=== PATIENT | male | born 2005 | race Caucasian/White ===

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

== ENCOUNTER 2024-07-14 09:15 | Emergency (ER) | payer OTHER, MEDICAID, SELFPAY ==
[2024-07-14] VITALS (21 sets, daily range): BP systolic 106–130; BP diastolic 58–73; PULSE 53–94; RESP 10–26; TEMP 36.6–37; O2SAT 97–100
--- OUTSIDE RECORDS SUMMARY | 2024-07-14 09:27 | XMS_ITS | Referral Summary ---
Author Organization [facility] Address [address] [place] [address] Care Team Providers Care Traffic Control Operator Name Role Phone System, Provider Not In Unavailable Unavaila ble Allergies No known active allergies Medications No known medications Immunizations Name Administration Dates Next Due Tdap Vaccine (7y+) 0.5 mL IM (Adacel, Boostrix)TDAP VACCINE AGE 7+ 06/21/2022 Social History Tobacco Use Types Packs/Day Years Used Date Smoking Tobacco: Never Smokeless Tobacco: Never Alcohol Use Standard Drinks/Week Comments Yes 0 (1 standard drink = 0.6 oz pur e alcohol) socially Substance Use Types Use/Week Comments Not Currently Sex and Gender Information Value Date Recorded Sex Assigned at Not on file Legal Sex Male 5:03 PM EDT Gender Identity Not on file Sexual Orientation Not on file Last Filed Vital Signs Vital Sign Reading Time Taken Comments Blood Pressure 126/79 06/21/2022 5:06 PM EDT Pulse 64 06/21/2022 5:06 PM EDT Temperature 36.4 ??C (97.5 ??F) 06/21/2022 5:06 PM ED T Respiratory Rate 16 06/21/2022 5:06 PM EDT Oxygen Saturation 100% 06/21/2022 5:06 PM EDT Inhaled Oxygen Concentration 100% 06/21/2022 5 :06 PM EDT Weight - - Height - - Body Mass Index - - Plan of Treatment Not on file Insurance [place] [employer] OTHER Care Teams Traffic Control Operator Relationship Specialty Start Date End Date System, Provider Not In PCP - Generic [facility] PCP 06/21/22
--- OUTSIDE RECORDS SUMMARY | 2024-07-14 09:27 | XMS_ITS | Clinical Summary ---
Author Organization [facility] Address [address] [place] [address] Care Team Providers Care Tail End Rider Name Role Phone System, Provider Not In [...] Health Maintenance Due Date Last Done Comments MMR Vaccines (1 of 1 - Stand patel series) 2005 Pediatric Cardiac Risk Screening 2007 Well Child Visit Annual 2007 Fluoride Varnish 2010 Depression Screening 2016 Varicella Vaccines (1 of 2 - 13+ 2-dose series) 2017 HIV Screening with Documente d Verbal Consent 2019 HPV Vaccines (1 - Male 3-dos e series) 2019 Hepatitis C Screening 2022 DTaP/Tdap/Td Vaccine (2 - Td or Tdap) 07/19/2022 06/21/2022 Hepatitis B Vaccines (1 of 3 - 19+ 3-dose series) 2023 COVID-19 Vaccine (1 - 2023-2 5 season) 2024 Influenza Vaccine (#1) 2024 TDAP/TD Vaccine 18+ 06/21/2032 06/21/2022 Hepatitis A Vaccines Aged Out No long er eligible based on patient's age to complete this topic IPV Vaccines Aged Out No longer eligi ble based on patient's age to complete this topic Meningococcal ACWY Vaccine Aged Out N o longer eligible based on patient's age to complete this topic Pneumococcal: Peds (0-5y) OR At-Risk Patient (6-64y) Aged Out No longer eligib le based on patient's age to complete this topic Rotavirus Vaccines Aged Out No longer eligible based on patient's age to complete this topic Insurance [place] [employer] OTHER Care Teams Tail End Rider Relationship Specialty Start Date End Date System, Provider Not In PCP - Generic [facility] PCP 06/21/22
--- OUTSIDE RECORDS SUMMARY | 2024-07-14 09:28 | XMS_ITS | Encounter Summary ---
Author Organization [facility] Address [address] [place] [address] Care Team Providers Care Golf Stud Riveter Name Role Phone Unknown, Provider Primary Care Provider Unava ilable Encounter Details Date Type Department Care Team (Late st Contact Info) Description 11/23/2020 Lab Requisition [facility] Pathology & Laboratory Medicine - [facility] [address] [place] [address] Juan Luis Lui MD [address] [place] [address] Unilateral inguinal hernia, without obstruction or gangrene, not specified as recurrent Social History Tobacco Use Types Packs/Day Years Used Date Smoking Tobacco: Never Assessed Interpersonal Safety Answer Date Record ed Physically Hurt Never 11/23/2020 Verbally Threaten Not on file 11/23/2020 Sex and Gender Information Value Date Recorded Sex Assigned at Not on file Legal Sex Male 17:01 EDT Gender Identity Not on file Sexual Orientation Not on file documented as of this encounter Plan of Treatment Not on file documented as of this encounter Procedures Procedure Name Priority Date/Time Associated Diagnosis Comments SURGICAL PATHOLOGY Today 11/23/2020 9: 57 EDT Unilateral inguinal hernia, without obstruction or gangrene, not specified as recurrent documented in this encounter Results * SURGICAL PATHOLOGY (11/23/2020 9:57 EDT) Final Diagnosis A. SUBMITTED LEFT GROIN LIPOMA AND HERNIA SAC, EXCISION: - Benign fibrovascular tissue and mature adipose tissue. 11/26/2020 9:21 EDT [facility] Attestation By the signature below, the attending physician certifies that they have 1) personally conducted a gross and/or microscopic examination of the described specimen(s), and/or personally interpreted the results of laboratory testing of the described specimen(s), and 2) personally rendered or confirmed the above diagnosis. 11/26/2020 9:21 T [facility] at 0921 Clinical History Left indirect inguinal hernia; clinical diagnosis code: K40.90 11/26/2020 9:21 EDT [facility] Gross Description A. Received in formalin labelled with proper patient identification (initials S, L) and left groin cord lipoma and hernia sac is a previously incised fibromembranous sac-like structure (3.5 x 0.8 x 0.5 cm) in addition to a portion of yellow lobulated adipose tissue (2.2 x 2.1 x 0.5 cm). The inner lining of the sac-like structure is wrinkled with no excrescences or nodules. The cut surfaces of the adipose tissue are unremarkable with no areas of hemorrhage or necrosis. Accounts Receivable Collector sections of the sac-like structure are submitted in A1 and the adipose tissue in A2. JAZZY BORJA(ASCP) 11/24/2020 7:32 11/26/2020 9:21 EDT [facility] Performing Lab [facility] 9:21 T [facility] Scanned Images 11/26/2020 9:21 T [facility] Tissue SOFT TISSUE / Unknown 11/23/2020 9:57 EDT 11/23/2020 17:03 EDT us Juan Luis Lui MD PATHOLOGY ORDERABLES F inal Result [facility] [address] [place] [address] documented in this encounter Visit Diagnoses Diagnosis Unilateral inguinal hernia, without obstruction or gangrene, not specified as recurrent documented in this encounter Care Teams Golf Stud Riveter Relationship Specialty Start Date End Date Unknown, Provider, PCP - General 09/03/20 documented as of this encounter
--- OUTSIDE RECORDS SUMMARY | 2024-07-14 09:28 | XMS_ITS | Encounter Summary ---
Author Organization [facility] Address [address] [place] [address] Care Team Providers Care Mat Cleaning Machine Operator Name Role Phone Unknown, Provider Primary Care Provider Unava ilable Encounter Details Date Type Department Care Team (Late st Contact Info) Description 10/12/2022 Lab Requisition [facility] Pathology & Laboratory Medicine - [facility] [address] [place] [address] Outr Resulting Lab, Provider Social History Tobacco Use Types Packs/Day [...] Procedure Name Priority Date/Time Associated Diagnosis Comments QUANTIFERON MITOGEN (PERFORMABLE) Today 10/11/2022 8:15 EST QUANTIFERON TB2 (PERFORMABLE) Today 10/11/2022 8:15 EST QUANTIFERON TB1 (PERFORMABLE) Today 10/11/2022 8:15 EST QUANTIFERON NIL (PERFORMABLE) Today 10/11/2022 8:15 EST QUANTIFERON INTERPRETATION (PERFORMABLE) Today 10/11/2022 8:15 EST QUANTIFERON TB GOLD PLUS Routine 10/11/2022 8:15 EST documented in this encounter Results * QUANTIFERON INTERPRETATION (PERFORMABLE) (10/11/2022 8:15 EST) Quantiferon Interpretation Negative Negative 10/13/2022 11:54 EST [facility] Comment:No interferon-gamma response to M. tuberculosis antigens was detected. ??Infection with M. tuberculosis is unlikely. A single negative result does not exclude infection with M. tuberculosis. ??In patients at high risk for M. tuberculosis infection, a second test should be considered. TB1 Ag minus Nil 0.01 IU/ml 10/13/19 11:54 EST [facility] TB2 Ag minus Nil 0.00 IU/mL 10/13/19 11:54 EST [facility] Blood VENOUS BLOOD / Unknown 10/11/2022 8:15 EST 10/13/2022 11:17 EST Narrative [facility] - 10/13/2022 11:54 EST Results were obtained with the [employer] QuantiFERON-TB Gold Plus CLIA. New platform in use 05/11/2021 us Provider Outr Resulting Lab IMMUNOLOGY AND SEROL OGY ORDERABLES Final Result Performing Organization Address [facility] de Phone Number [facility] [address] [place] [address] * QUANTIFERON MITOGEN (PERFORMABLE) (10/11/2022 8:15 EST) Blood VENOUS BLOOD / Unknown 10/11/2022 8:15 EST 10/12/2022 17:45 EST us Provider Outr Resulting Lab IMMUNOLOGY AND SEROL OGY ORDERABLES Final Result Performing Organization Address [facility] Co de Phone Number [facility] [address] [place] [phone] * QUANTIFERON TB2 (PERFORMABLE) (10/11/2022 8:15 EST) Blood VENOUS BLOOD / Unknown 10/11/2022 8:15 EST 10/12/2022 17:45 EST us Provider Outr Resulting Lab IMMUNOLOGY AND SEROL OGY ORDERABLES Final Result Performing Organization Address [facility] Co de Phone Number [facility] [address] [place] [phone] * QUANTIFERON TB1 (PERFORMABLE) (10/11/2022 8:15 EST) Blood VENOUS BLOOD / Unknown 10/11/2022 8:15 EST 10/12/2022 17:45 EST us Provider Outr Resulting Lab IMMUNOLOGY AND SEROL OGY ORDERABLES Final Result Performing Organization Address [facility] de Phone Number [facility] [address] [place] [address] * QUANTIFERON NIL (PERFORMABLE) (10/11/2022 8:15 EST) Blood VENOUS BLOOD / Unknown 10/11/2022 8:15 EST 10/12/2022 17:45 EST us Provider Outr Resulting Lab IMMUNOLOGY AND SEROL OGY ORDERABLES Final Result Performing Organization Address [facility] Co de Phone Number [facility] [address] [place] [address] documented in this encounter Visit Diagnoses Not on filedocumented in this encounter Care Teams Mat Cleaning Machine Operator Relationship Specialty Start Date End Date Unknown, Provider, PCP - General 09/03/20 documented as of this encounter
--- OUTSIDE RECORDS SUMMARY | 2024-07-14 09:28 | XMS_ITS | Encounter Summary ---
Author Organization [facility] Address [address] [place] [id number] Care Team Providers Care Jacquard Loom Carpet Weaver Name Role Phone System, Provider Not In Unavailable Unavaila ble Reason for Visit * Reason Comments Head Laceration Encounter Details Date Type Department Care Team ([facility] st Contact Info) Description 06/21/2022 5:10 PM EDT - 06/21/2022 6:51 PM EDT Emergency [facility] Emergency Department [address] [place] [address] Gabriel Tee MD [address] [place] [address] Discharge Disposition: Home or Self Care Social History Tobacco Use Types Packs/Day Years [...] - documented in this encounter Discharge Instructions * Discharge Instructions* Gabriel Tee MD - 06/21/2022 6:00 PM EDT CONCUSSION Acetaminophen (Tylenol) 325mg tablets, take 1-2 [...] should be removed in 7-10 days at [facility] (or here in the ER if they cannot accommodate you). Return to the Emergency Department earlier if you have any concerns for infection such as increasedpain, redness, fevers, drainage, or any other new or worse symptoms. documented in this encounter ED Notes * Kati Apodaca RN - 06/21/2022 5:40 PM EDT Wound irrigated with Hibiclens. * Gabriel Tee MD - 06/21/2022 5:20 PM EDT Historian(s): Patient, coworker CC: Head injury HPI: Giovanni Jaimes is a 17 y.o. male who presents with complaint of head injury. 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 Something fell from well above him striking him on the top right portion of his hard hat. He lost consciousness immediately. He came to immediately. No seizure activity. Now he has mild headache generally. He has a right parietal scalp laceration up near the vertex.No vomiting. No confusion. He has been neurologically [...] crepitus, lymphadenopathy, meningismus, or thyroid tenderness. No midlinetenderness. FROM flex/ex/rotation. Chest: Nontender. Cardiovascular: Regular rate and rhythm. No murmurs rubs or gallops (S3). 2+ radial and dorsalis pedis artery pulses with warm and well-perfused distal extremities x 4. Pulmonary: Clear to auscultation bilaterally. No wheezes rales or rhonchi. Breath sounds equal bilaterally. No crepitus. GI: Soft flat nontender nondistended abdomen. Salvador sign is absent. McBurney's point is nontender.No rebound or guarding. Bowel sounds are normal. Back: No CVA tenderness. No midline tenderness. Skin: No rash or diaphoresis. 3.5 cm linear moderately deep scalp laceration right parietal area upnear the vertex. Mild soft tissue edema around it. No active bleeding. MSK: No tenderness at the cervical thoracic or lumbar spines midline or paraspinal. No tenderness at the clavicles AC joints upper extremities or lower [...] vRad report. PROCEDURE NOTE: LACERATION REPAIR Date/time: 5:52 PM Reason for repair: patent scalp [...] mechanism, CT indicated. Neurologic exam is reassuring. Discussed pros and cons of CT with patient, CT will be taken. Scalp laceration is not significantly deep, will be amenable to cleansing and vani. Patient overall looks well. No suggestion of cervical thoracic or lumbar spine injury. No neurologic signs or [...] injury Disposition: discharge Gabriel Tee MD 06/21/22 1845 * Brittany Mckeon RN - 06/21/2022 5:05 PM EDT Pt c/o head laceration s/p hit in head by unknown object, pt was wearing hard hat. Pt states + LOC,some nausea, denies vision changes. documented in this encounter Miscellaneous Notes * Workers' Comp Form - Gabriel Tee MD - 06/21/2022 6:01 PM EDT M-1 DIAGNOSTIC MEDICAL REPORT [place] [employer] EMPLOYEE NAME: Giovanni Jaimes EMPLOYEE SSN (last 4 digits only): [id number] EMPLOYEE : 2005 EMPLOYEE PHONE: No relevant phone numbers on file. No relevant phone numbers on file. [employer] [phone] EMPLOYER NAME: None found from Claim EMPLOYER ADDRESS: None found from Claim , DATE [facility] IN[facility]: [id number])@ TIME OF INJURY: 15:00 EDT DID INJURY OCCUR ON EMPLOYER PREMISES? ( ) Yes ( ) No IF NO, LIST PLACE OF INJURY: FREELANCE OPERATOR???S NAME: FREELANCE OPERATOR???S PHONE: EMPLOYER FAX: NATURE/CAUSE OF INJURY: Object fell and struck hard hat. Scalp laceration caused. Lost consciousness transiently. DATE OF THIS EXAMINATION : 06/21/2022 (X) [...] PATIENT AT [facility]? ( ) YES ( ) NO ESTIMATED LENGTH OF TREATMENT Follow-up with [facility] in the next couple of days TREATMENT PLAN:_5 vani placed in the scalp laceration. Concussion care. 2 days off work. Follow-up with [facility]. OFFICE PROCEDURES:_ ___ MEDICAL REFERRAL SPECIALTY: IT HELP DESK ANALYST: __ DOES TREATMENT INCLUDE MEDICATION THAT PREVENTS PATIENT FROM DRIVING OR PERFORMING SAFETY SENSITIVEWORK? ( ) YES (X) NO IF YES, [...] PRINT NAME Gabriel Tee MD ADDRESS [address] [facility] [id number] TELEPHONE [phone] documented in this encounter Plan of Treatment Not on file documented as of this encounter Procedures Procedure Name Priority Date/Time Associated Diagnosis Comments CT HEAD WO CONTRAST STAT 06/21/2022 5 :51 PM EDT documented in this encounter Results * CT Head WO Contrast (06/21/2022 5:51 PM EDT) Anatomical Region Laterality Modality Head Computed Tomogra phy 06/21/2022 5:40 PM EDT Narrative 06/21/2022 7:59 PM EDT EXAM: CT HEAD WO CONTRAST INDICATION: ??Head trauma, moderate-severe. Object fell from significant height striking him on his hard hat causing him to lose consciousness transiently. ??Nonfocal neurologic exam. ??Intracranial hemorrhage or other acute trauma? COMPARISON: None. TECHNIQUE: 2.5 mm contiguous multiplanar MDCT of the brain is obtained without intravenous contrast administration. FINDINGS: BRAIN: Unremarkable. ??No hemorrhage. ??No significant white matter disease. ??No edema. VENTRICLES: Appears unremarkable. ??No ventriculomegaly. BONES: Appears unremarkable. ??No acute fracture. SINUSES: Mild sinus mucosal thickening without air-fluid level. Secretions within the posterior nasopharynx. MASTOID AIR CELLS: Unremarkable as visualized. ??No mastoid effusion.. Right superior scalp laceration IMPRESSION: No acute intracranial process. A preliminary report was provided by the teleradiology service shortly after study completion. Preliminary findings are concordant with the final report. WORKSTATION: [employer] * * THIS IS AN ELECTRONICALLY VERIFIED REPORT CREATED USING VOICE RECOGNITION ??* * 06/21/2022 7:57 PM ??Vasquez Villarreal MD Procedure Note Vasquez Villarreal MD - 06/21/2022 EXAM: CT HEAD WO CONTRAST INDICATION: Head trauma, moderate-severe. Object fell from significantheight striking him on his hard hat causing him to lose consciousnesstransiently. Nonfocal neurologic exam. Intracranial hemorrhage or otheracute trauma? COMPARISON: None. TECHNIQUE: 2.5 mm contiguous multiplanar MDCT of the brain is obtainedwithout intravenous contrast administration. FINDINGS: BRAIN: Unremarkable. No hemorrhage. No significant white matter disease.No edema. VENTRICLES: Appears unremarkable. No ventriculomegaly. BONES: Appears unremarkable. No acute fracture. SINUSES: Mild sinus mucosal thickening without air-fluid level. Secretionswithin the posterior nasopharynx. MASTOID AIR CELLS: Unremarkable as visualized. No mastoid effusion.. Right superior scalp laceration IMPRESSION: No acute intracranial process. A preliminary report was provided by the teleradiology service shortlyafter study completion. Preliminary findings are concordant with the final report. WORKSTATION: [employer] * * THIS IS AN ELECTRONICALLY VERIFIED REPORT CREATED USING VOICERECOGNITION * * 06/21/2022 7:57 PM Vasquez Villarreal MD us Gabriel Tee MD IMG CT ORDERABLES Final Result documented in this encounter Visit Diagnoses Diagnosis Closed head injury, initial encounter- Primary Scalp laceration, initial encounter Work related injury Injury, other and unspecified, unspecified site documented in this encounter Administered Medications Inactive Administered Medications - up to 3 most recent administrations Medication Order MAR Action Action Date Dose Rate Site Ugkz-PJARMPLcurk-Llufwqbrbo 4-0.05-0.5 % topical solution 5 mL 5 [...] 5 minutes for up to 30 minutes Given 06/21/2022 5:27 PM EDT 5 mL documented in this encounter Active and Recently Administered Medications Times are shown in EDT. Scheduled Medication Order 06/19/2022 06/20/2022 06/21/2022 [id number]-Kcabukrzeg 4-0.05-0.5 % topical solution 5 mL (COMPLETED) 5 mL, Topical, Once, On Sun06/21/22 at [...] 5 minutes for up to 30 minutes 1727 (Given - Provid er: Kati Apodaca RN) documented in this encounter Care Teams Jacquard Loom Carpet Weaver Relationship Specialty Start Date End Date System, Provider Not In PCP - Generic [facility] PCP 06/21/22 documented as of this encounter
--- OUTSIDE RECORDS SUMMARY | 2024-07-14 09:28 | XMS_ITS | Clinical Summary ---
Author Organization [facility] Address [address] [place] [address] Care Team Providers Care Potter Or Ceramic Artist Name Role Phone Unknown, Provider Primary Care Provider Unava ilable Social History Tobacco Use Types Packs/Day Years Used Date Smoking Tobacco: Never Assessed Interpersonal Safety Answer Date Record ed Physically Hurt Never 11/23/2020 Verbally Threaten Not on file 11/23/2020 Sex and Gender Information Value Date Recorded Sex Assigned at Not on file Legal Sex Male 17:01 EDT Gender Identity Not on file Sexual Orientation Not on file Plan of Treatment Health Maintenance Due Date Last Done Comments Hepatitis C Screen 2004 Hepatitis B Vaccine (1 of 3 - 19+ 3-dose series) 04/29 COVID-19 Vaccine (2022- season) 2023 Insurance MEDICAID [place] [facility] Address: [address] [address] Care Teams Potter Or Ceramic Artist Relationship Specialty Start Date End Date Unknown, Provider, PCP - General 09/03/20
--- OUTSIDE RECORDS SUMMARY | 2024-07-14 09:28 | XMS_ITS | Referral Summary ---
Author Organization Health system Address [address] [place] [address] Care Team Providers Care House Mover Name Role Phone Unknown, Provider Primary Care [...] Orientation Not on file Plan of Treatment Not on file Insurance MEDICAID [place] [facility] Address: [address] [phone] Care Teams House Mover Relationship Specialty Start Date End Date Unknown, Provider, PCP - General 09/03/20
--- NOTE | 2024-07-14 09:30 | DI.CT_ITS ---
Exam(s) CT CHEST/ABD/PEL W EXAM: CT CHEST/ABD/PEL W CLINICAL HISTORY: weight loss, night sweats, abdominal pain, cough. TECHNIQUE: Imaging Protocol: Axial computed tomography images with coronal and sagittal reformatted images were created and reviewed. Computer aided detection (CAD) was utilized. CONTRAST MATERIAL: Intravenous: Omnipaque 350 Contrast volume:100 ml Oral: yes / no COMPARISON: No exams were available for comparison FINDINGS: CHEST: Tracheobronchial tree: Patent. Pulmonary parenchyma: No consolidation or dominant measurable mass. Pleura: No effusion or pneumothorax. Mediastinum: Within normal limits. No adenopathy. Small amount of residual thymic tissue. Aorta: Thoracic portion non-dilated. Pulmonary arteries: No visible emboli. Heart: No pericardial effusion. Bones: Schmorl's node inferior endplate of T10. T10-11 disc space narrowing. No lytic or blastic le sions.No acute fractures. Soft tissues: Mild bilateral gynecomastia. ABDOMEN and PELVIS: Liver: Normal density. No measurable mass. Gallbladder and biliary tract: No evidence of stones or wall thickening. No biliary dilatation. Pancreas: Normal density, no abnormal calcifications or inflammatory process. Spleen: Normal. Kidneys: Normal size, contour and axis. No radiodense stones. No obstructive uropathy. No suspicious masses seen. Adrenal glands: No masses seen. Aorta: Abdominal portion non-dilated. Lymph nodes: Within normal limits. Soft tissues: Unremarkable. Bladder: Unremarkable. Bowel: No obstruction or bowel wall thickening. Peritoneal cavity: No ascites. No focal collection. No mesenteric inflammatory response. No free ai r. Bones: Schmorl's node superior endplate of S1. Reproductive organs: Within normal limits. IMPRESSION: No acute abnormality in the chest, abdomen or pelvis. RADIATION DOSE DELIVERED: 419.64mGy.cm Total DLP DATA REPOSITORY: All CT scans at this facility are submitted to the National Radiology Data Registry (NRDR) Dose Index Registry (DIR) with the [employer] (ACR). RADIATION OPTIMIZATION: All CT scans at this facility use at least one of these dose optimization te chniques: automated exposure control; mA and/or kV adjustment per patient size (includes targeted exa ms where dose is matched to clinical indication); or iterative reconstruction.
[2024-07-14 10:13] LABS: Abs Immature Grans 0.01 10^3/uL (0.0-0.06); Absolute Basophil Count 0.03 10^3/uL (0.0-0.2); Absolute Eosinophil Count 0.16 10^3/uL (0.0-0.7); Absolute Lymphocyte Count 1.46 10^3/uL (1.2-3.4); Absolute Monocyte Count 0.44 10^3/uL (0.1-0.8); Absolute Neutrophil Count 3.49 10^3/uL (1.2-6.7); Basophils % 0.5 %; Eosinophils % 2.9 %; HCT 44.5 % (40.0-50.0); HGB 15.1 g/dL (13.5-17.5); Immature Grans % 0.2 %; Lymphocytes % 26.1 %; MCH 30.6 pg (27.0-33.0); MCHC 33.9 % (32.0-36.0); MCV 90 fL (80-95); MPV 10.7 fL (8.0-11.0); Monocytes % 7.9 %; Neutrophils % 62.4 %; Platelet Count 241 10^3/uL (130-400); RBC 4.93 10^6/uL (4.36-5.78); RDW 12.6 % (11.8-14.1); RDW-SD 41.6 fL; WBC 5.59 10^3/uL (4.4-10.8)
[2024-07-14] MEDS: Omnipaque 350 MG/ML 100 ML BTL IJ (10:15)
[2024-07-14] MEDS: Normal Saline - Diluent 50 ML VIAL IJ (10:16)
[2024-07-14 10:24] LABS: Bilirubin Negative (Negative); Blood Negative (Negative); Clarity Clear (Clear); Glucose Negative (Negative); Ketones Negative (Negative); Leukocyte Esterase Negative (Negative); Nitrite Negative (Negative); Urobilinogen 0.2 mg/dL (Up to 0.2)
--- NOTE | 2024-07-14 10:25 | W.ED.GENAD ---
Discharge Plan Disposition Patient Disposition: Home Condition: Stable Discharge Details Clinical Impression: Fatigue Primary Care Provider: None,None ED Provider: Jay Bartlett Home Meds and New Rx's Prescriptions: No Action No Known Home Meds Discharge Instructions Instructions: Fatigue ED Additional Instructions: You were seen in the emergency department for your unintentional weight loss, fatigue, night sweats ongoing since February. Your laboratory workup is completely benign showing no evidence of leukemia or other blood disorder on your blood smear, your electrolytes are all within normal limits, there is no sign of liver or kidney dysfunction, your urine is benign. There is no evidence of any infection, the CT scan shows no evidence of mass or lymphoma or changes associated with any form of cancer, does show a Schmorl's node on your T10 vertebrae, a non-emergent finding you can discuss when you establish PCP care. I do not feel that this is a tapeworm or cancer, you may need to speak with a gastroenterology specialist at [facility] but I do not think any emergent pathology is ongoing at this time. Please return to the ER for any emergent concerns. Discharge Data Discharge Date/Time-TO BE ENTERED AT DEPARTURE: 07/14/24 11:31 HPI General Date/Time Provider Initiated Documentation: 07/14/24 09:36. HPI Narrative: 19 year-old male presents to ED today by POV/ambulating with a chief complaint of abdominal pain- R-sided, ongoing for months, unintentional weight loss of 40# since February, night sweats, cough. Patient does not have a PCP. Quality described as generalized fatigue, R sided abdominal pain, non-productive chronic cough, no radiation to chest pain, shortness of breath, fainting, fever, neck stiffness, endorses headache last night. Severity is described as moderate to severe. Palliating factors include nothing specific attempted. Provoking factors include nothing specific. Events leading up to the incident/Associated Symptoms: has tried to get in with PCP, they cannot see him until November. Patient presented to last night, they recommended ED evaluation for tapeworm and/or cancer per patient. Patient not anticoagulated. Related Data Home Medications ?Medication ?Instructions ?Recorded ?Confirmed Unknown [No Known Home Meds] 07/14/24 07/14/24 Allergies Allergy/AdvReac Type Severity Reaction Status Date / Time No Known Allergies Allergy Unverified 07/14/24 09:27 General Stated Complaint: GenMedical RAHEL: 3 Review of Systems All systems reviewed & are unremarkable except as noted in HPI and below Exam Narrative Exam Narrative: GENERAL APPEARANCE: Well-nourished, non-toxic, awake and alert, atraumatic, no acute distress. SKIN: Warm, pink, dry, intact, without rashes/lesions/ulcerations. HEAD: Normocephalic, atraumatic, normal hair distribution for gender/age. EYES: Normal conjunctiva, no exudates on lids/lashes. ENT: Nares patent, no circumoral cyanosis, no facial swelling NECK: Supple, trachea midline, painless cervical ROM. LUNGS/CHEST: Lungs CTA bilaterally, non-labored respirations, normal A/P diameter, symmetrical expansion, no chest wall deformity HEART (CV/PV): Regular rate and rhythm without murmur, no peripheral edema, no JVD. ABDOMEN: Soft, non-distended, no guarding, mild R sided abdominal tenderness at McBurney's point, negative Rovsing's, negative Salvador's sign. MSK: Normal ROM, no swelling/deformity to bilateral UEs or LEs, moving all extremities without weakness, no cyanosis, spine midline without tenderness, normal curvature. NEURO: Mental Status AAOx4 - alert to person, place, time, events No facial droop, no forehead involvement. Motor: No focal weakness - strength 5/5 in bilateral UEs and LEs, proximal and distal, symmetric. Sensory: sensation intact to light touch globally. Gait normal: patient ambulated without ataxia into ED room. PSYCH: euthymic, cooperative, pleasant, appropriate speech Course Vital Signs Vital signs: Vital Signs Temperature 36.6 C 07/14/24 09:23 Pulse 94 H 07/14/24 09:23 Respiratory Rate 12 07/14/24 09:23 Blood Pressure 130/73 07/14/24 09:23 Pulse Oximetry 97 07/14/24 09:23 Temperature 36.6 C 07/14/24 09:23 Temperature Source Oral 07/14/24 09:23 Pulse 94 H 07/14/24 09:23 Respiratory Rate 16 07/14/24 09:34 Respiratory Effort Normal, Non-Labored 07/14/24 09:34 Respiratory Depth Normal 07/14/24 09:34 Respiratory Pattern Normal 07/14/24 09:34 Blood Pressure 130/73 07/14/24 09:23 Blood Pressure Position Sitting 07/14/24 09:23 Pulse Oximetry 97 07/14/24 09:23 Oxygen Delivery Method Room Air 07/14/24 09:23 Oxygen Flow Rate 0 07/14/24 09:23 Pain Level 2 07/14/24 09:23 Lab/Test Results Lab/Test Results: Laboratory Tests Range/Units 07/14/24 10:00 WBC (4.4-10.8) 10^3/uL 5.59 RBC (4.36-5.78) 10^6/uL 4.93 Hgb (13.5-17.5) g/dL 15.1 Hct (40.0-50.0) % 44.5 MCV (80-95) fL 90 MCH (27.0-33.0) pg 30.6 MCHC (32.0-36.0) % 33.9 RDW (11.8-14.1) % 12.6 Plt Count (130-400) 10^3/uL 241 MPV (8.0-11.0) fL 10.7 Immature Gran % % 0.2 Neutrophils % % 62.4 Lymphocytes % % 26.1 Monocytes % % 7.9 Eosinophils % % 2.9 Basophils % % 0.5 Nucleated RBC % (0.0-0.3) % 0.0 Absolute Neutrophils (1.2-6.7) 10^3/uL 3.49 Absolute Lymphocytes (1.2-3.4) 10^3/uL 1.46 Absolute Monocytes (0.1-0.8) 10^3/uL 0.44 Absolute Eosinophils (0.0-0.7) 10^3/uL 0.16 Absolute Basophils (0.0-0.2) 10^3/uL 0.03 Medical Decision Making This dictation utilizes [id number] dictation software and may contain unedited grammatical errors. 19 year-old male presents to ED today by POV/ambulating with a chief complaint of abdominal pain- R-sided, ongoing for months, unintentional weight loss of 40# since February, night sweats, cough. Patient does not have a PCP. Quality described as generalized fatigue, R sided abdominal pain, non-productive chronic cough, no radiation to chest pain, shortness of breath, fainting, fever, neck stiffness, endorses headache last night. Severity is described as moderate to severe. Palliating factors include nothing specific attempted. Provoking factors include nothing specific. Events leading up to the incident/Associated Symptoms: has tried to get in with PCP, they cannot see him until November. Patient presented to last night, they recommended ED evaluation for tapeworm and/or cancer per patient. Patients' medical history: Negative, otherwise healthy. Family and social history: States grandmother has diabetes. Pertinent exam findings / vital signs include mild right-sided abdominal tenderness without rebound tenderness, benign cardiopulmonary exam, neuro intact, nontoxic vitals. Differential / pathologies of concern include anemia, blood dyscrasia, mass, malabsorption, tickborne illness, thyroid disorder. Diagnostic studies of: -CBC, CMP, magnesium, lipase, TSH, UA, CT of the chest/ABD/pelvis with contrast. -CBC shows no abnormalities whatsoever -CMP is completely normal -Magnesium within normal limits -TSH within normal limits -Lipase negative -UA benign -CT shows no acute abnormality, counseled to f/u on Georgie's node when they establish PCP care Interventions of: -None. ED Course/Assessment/Plan: 19-year-old otherwise healthy male presents with allegedly unintentional weight loss and night sweats, does appear somewhat pale but has no anemia on labs, labs are all completely within normal limits and CT of the chest abdomen pelvis is negative for any acute pathology or any metastatic disease. I do recommend that he needs to establish PCP, see gastroenterology at [facility] that likely no emergent pathology was occurring at this time, tick panel is pending. Findings not consistent with anemia, blood dyscrasia, cancer, inability to tolerate p.o. intake. Disposition of fatigue. Patient verbalized understanding of the plan and return to ED criteria and engaged in shared decision making. Medical Records Medical records reviewed: Yes I reviewed the patient's medical records. Imaging Data Radiologic Study: Attestation: I personally reviewed and interpreted this imaging study as follows: Imaging: CT Scan Radiologist's impression: EXAM: CT CHEST/ABD/PEL W CLINICAL HISTORY: weight loss, night sweats, abdominal pain, cough. TECHNIQUE: Imaging Protocol: Axial computed tomography images with coronal and sagittal reformatted images were created and reviewed. Computer aided detection (CAD) was utilized. CONTRAST MATERIAL: Intravenous: Omnipaque 350 Contrast volume:100 ml Oral: yes / no COMPARISON: No exams were available for comparison FINDINGS: CHEST: Tracheobronchial tree: Patent. Pulmonary parenchyma: No consolidation or dominant measurable mass. Pleura: No effusion or pneumothorax. Mediastinum: Within normal limits. No adenopathy. Small amount of residual thymic tissue. Aorta: Thoracic portion non-dilated. Pulmonary arteries: No visible emboli. Heart: No pericardial effusion. Bones: Schmorl's node inferior endplate of T10. T10-11 disc space narrowing. No lytic or blastic lesions.No acute fractures. Soft tissues: Mild bilateral gynecomastia. ABDOMEN and PELVIS: Liver: Normal density. No measurable mass. Gallbladder and biliary tract: No evidence of stones or wall thickening. No biliary dilatation. Pancreas: Normal density, no abnormal calcifications or inflammatory process. Spleen: Normal. Kidneys: Normal size, contour and axis. No radiodense stones. No obstructive uropathy. No suspicious masses seen. Adrenal glands: No masses seen. Aorta: Abdominal portion non-dilated. Lymph nodes: Within normal limits. Soft tissues: Unremarkable. Bladder: Unremarkable. Bowel: No obstruction or bowel wall thickening. Peritoneal cavity: No ascites. No focal collection. No mesenteric inflammatory response. No free air. Bones: Schmorl's node superior endplate of S1. Reproductive organs: Within normal limits. IMPRESSION: No acute abnormality in the chest, abdomen or pelvis. Lab Data Lab results reviewed: Yes I reviewed the patient's lab results. Labs: Laboratory Tests Range/Units 07/14/24 07/14/24 10:00 10:04 WBC (4.4-10.8) 10^3/uL 5.59 RBC (4.36-5.78) 10^6/uL 4.93 Hgb (13.5-17.5) g/dL 15.1 Hct (40.0-50.0) % 44.5 MCV (80-95) fL 90 MCH (27.0-33.0) pg 30.6 MCHC (32.0-36.0) % 33.9 RDW (11.8-14.1) % 12.6 Plt Count (130-400) 10^3/uL 241 MPV (8.0-11.0) fL 10.7 Immature Gran % % 0.2 Neutrophils % % 62.4 Lymphocytes % % 26.1 Monocytes % % 7.9 Eosinophils % % 2.9 Basophils % % 0.5 Nucleated RBC % (0.0-0.3) % 0.0 Absolute Neutrophils (1.2-6.7) 10^3/uL 3.49 Absolute Lymphocytes (1.2-3.4) 10^3/uL 1.46 Absolute Monocytes (0.1-0.8) 10^3/uL 0.44 Absolute Eosinophils (0.0-0.7) 10^3/uL 0.16 Absolute Basophils (0.0-0.2) 10^3/uL 0.03 Sodium (136-145) mmol/L 143 Potassium (3.5-5.1) mmol/L 4.7 Chloride (98-107) mmol/L 106 Carbon Dioxide (21.0-32.0) mmol/L 27.3 Anion Gap (3-11) mmol/L 9.7 BUN (7-18) mg/dL 12 Creatinine (0.70-1.30) mg/dL 1.0 Est GFR (CKD-EPI 2020) (mL/min/1.73m2) 110.50 Glucose (74-106) mg/dL 106 Calcium (8.5-10.1) mg/dL 9.4 Magnesium (1.8-2.4) mg/dL 2.1 Total Bilirubin (0.2-1.0) mg/dL 0.50 AST (15-37) U/L 15 ALT (16-63) U/L 19 Alkaline Phosphatase (46-116) U/L 75 Creatine Kinase (39-308) U/L 83 Total Protein (6.4-8.2) g/dL 7.5 Albumin (3.4-5.0) g/dL 4.3 Lipase (16-77) U/L 20 TSH (0.36-3.74) uIU/mL 1.05 Urine Color (Yellow) Yellow Urine Clarity (Clear) Clear Urine pH (5-8) 7.0 Ur Specific [place] (1.005-1.025) 1.020 Urine Protein (Neg-Trace) mg/dL Negative Urine Ketones (Negative) mg/dL Negative Urine Blood (Negative) Negative Urine Nitrite (Negative) Negative Urine Bilirubin (Negative) Negative Urine Urobilinogen (Up to 0.2) mg/dL 0.2 Ur Leukocyte Esterase (Negative) Negative Urine Glucose (Negative) mg/dL Negative Quality:SDOH Health Related Social Needs: No Data to Display PFSH All Active Problems (Updated 07/14/24 @ 11:15 by JAZZY Silva) Fatigue (Acute) Social History Smoking/Tobacco Use Status: Never Smoking risk assessment performed?: Yes Alcohol Intake: never Drug use: Daily Substance use type: marijuana Housing: house Do you feel safe at home: Yes Do you feel safe in your relationship?: Yes
[2024-07-14 10:49] LABS: ALT 19 U/L (16-63); AST 15 U/L (15-37); Albumin 4.3 g/dL (3.4-5.0); Alkaline Phosphatase 75 U/L (46-116); Anion Gap 9.7 mmol/L (3-11); BUN 12 mg/dL (7-18); CO2 27.3 mmol/L (21.0-32.0); Calcium 9.4 mg/dL (8.5-10.1); Chloride 106 mmol/L (98-107); Glucose 106 mg/dL (74-106); Magnesium 2.1 mg/dL (1.8-2.4); Potassium 4.7 mmol/L (3.5-5.1); Sodium 143 mmol/L (136-145); TSH (W/Ref FT4) 1.05 uIU/mL (0.36-3.74); Total Protein 7.5 g/dL (6.4-8.2)
[2024-07-14 11:04] LABS: Creatine Kinase 83 U/L (39-308); Lipase 20 U/L (16-77)
[2024-07-15 09:59] LABS: Lyme Ab w Rflx to Lyme Confirm Negative (Negative)
[2024-07-17 00:30] LABS: Anaplasma phagocytophilum Negative (Negative); B. miyamotoi PCR Negative (Negative); Babesia divergens/MO-1 Negative (Negative); Babesia duncani Negative (Negative); Babesia microti Negative (Negative); Ehrlichia chaffeensis Negative (Negative); Ehrlichia ewingii/canis Negative (Negative); Ehrlichia muris eauclairensis Negative (Negative)
== END 2024-07-14 11:31 | disposition home or self-care (01) ==
PROVIDERS: Emergency Provider Physician Assistant
DX: R10.9 Unspecified abdominal pain (principal); R63.4 Abnormal weight loss; R53.83 Other fatigue; M51.44 Schmorl's nodes, thoracic region
CPT/HCPCS: 74177; 80053; 82550; 83690; 87798; 99285; 71260; 81003; 83735; 84443; 85025; 86618; 99284; J3490

== ENCOUNTER 2024-11-13 15:13 | Outpatient (REF) | payer OTHER, MEDICAID, SELFPAY ==
[2024-11-13 17:59] LABS: ALT 19 U/L (16-63); AST 18 U/L (15-37); Albumin 4.4 g/dL (3.4-5.0); Alkaline Phosphatase 96 U/L (46-116); Anion Gap 9.6 mmol/L (3-11); BUN 12 mg/dL (7-18); Bilirubin, Total 0.4 mg/dL (0.2-1.0); CO2 29.4 mmol/L (21.0-32.0); CREATININE 0.9 mg/dL (0.70-1.30); Calcium 9.7 mg/dL (8.5-10.1); Chloride 104 mmol/L (98-107); Estimated GFR 125.39 (mL/min/1.73m2); Glucose 90 mg/dL (74-106); Potassium 4.3 mmol/L (3.5-5.1); Sodium 143 mmol/L (136-145); TSH 0.74 uIU/mL (0.36-3.74); Total Protein 7.6 g/dL (6.4-8.2)
[2024-11-13 18:09] LABS: Abs Immature Grans 0.02 10^3/uL (0.0-0.06); Absolute Basophil Count 0.04 10^3/uL (0.0-0.2); Absolute Eosinophil Count 0.14 10^3/uL (0.0-0.7); Absolute Lymphocyte Count 1.81 10^3/uL (1.2-3.4); Absolute Monocyte Count 0.38 10^3/uL (0.1-0.8); Absolute Neutrophil Count 3.16 10^3/uL (1.2-6.7); Basophils % 0.7 %; Eosinophils % 2.5 %; HCT 43.8 % (40.0-50.0); HGB 14.7 g/dL (13.5-17.5); Immature Grans % 0.4 %; Lymphocytes % 32.6 %; MCH 30.4 pg (27.0-33.0); MCHC 33.6 % (32.0-36.0); MCV 91 fL (80-95); MPV 10.5 fL (8.0-11.0); Monocytes % 6.8 %; Platelet Count 309 10^3/uL (130-400); RBC 4.84 10^6/uL (4.36-5.78); RDW 12.4 % (11.8-14.1); RDW-SD 40.5 fL; WBC 5.55 10^3/uL (4.4-10.8)
[2024-11-13 18:20] LABS: C-Reactive Protein < 0.50 mg/dL (<or=0.5)
[2024-11-13 18:29] LABS: Hemoglobin A1C 5.5 % (<5.7)
[2024-11-14 18:02] LABS: T4, Free 1.5 ng/dL (0.8-2.2)
== END 2024-11-13 15:14 | disposition home or self-care (01) ==
LOC: NCHCN 15:13
PROVIDERS: Visit Provider Family Medicine
DX: R63.4 Abnormal weight loss (principal)
CPT/HCPCS: 80053; 83036; 83993; 84439; 84443; 85025; 86140

== ENCOUNTER 2024-11-21 14:10 | Outpatient (REF) | payer OTHER, MEDICAID, SELFPAY ==
[2024-11-25 12:55] LABS: Calprotectin <50.0 mcg/g
== END 2024-11-21 14:11 | disposition home or self-care (01) ==
LOC: NCHCN 14:10
PROVIDERS: PCP Family Medicine; Visit Provider Family Medicine
DX: R63.4 Abnormal weight loss (principal)
CPT/HCPCS: 83993

== ENCOUNTER 2024-12-15 09:19 | Outpatient (CLI) | payer OTHER, MEDICAID, SELFPAY ==
[2024-12-16 10:07] LABS: HIV-1/2 Ag & Ab Screen Negative (Negative)
[2024-12-17 10:51] LABS: IgA 192 mg/dL (85-499); Interpretation (See Note); Tissue Transglutaminase IgA <4.0 CU (<20.0)
[2024-12-17 13:18] LABS: TB Interpretation Negative (Negative); TB1 Ag minus Nil 0.01 IU/mL; TB2 Ag minus Nil 0.01 IU/mL
== END 2024-12-15 09:20 | disposition home or self-care (01) ==
LOC: LBO 09:22
PROVIDERS: PCP Family Medicine; Visit Provider Family Medicine
DX: R63.4 Abnormal weight loss (principal)
CPT/HCPCS: 36415; 82533; 82784; 83516; 87389; 86480

== ENCOUNTER 2025-01-21 19:27 | Observation (INO) | payer OTHER, MEDICAID, SELFPAY ==
[2025-01-21] VITALS (7 sets, daily range): BP systolic 109–139; BP diastolic 62–74; PULSE 58–89; RESP 16–18; TEMP 36.5–36.9; O2SAT 98–99
--- NOTE | 2025-01-21 19:45 | DI.CT_ITS ---
Exam(s) CT ABDOMEN PELVIS W EXAM: CT ABDOMEN PELVIS W CLINICAL HISTORY: RLQ tenderness, appy. TECHNIQUE: Imaging Protocol: Axial computed tomography images with coronal and sagittal reformatted images were created and reviewed CONTRAST MATERIAL: Intravenous: Omnipaque 350 Contrast volume:75 ml Oral: no COMPARISON: CT CT CHEST/ABD/PEL W from 07/14/2024 FINDINGS: ABDOMEN and PELVIS: Lung Bases: No acute findings. Liver: Normal density. No suspicious mass. Gallbladder and biliary tract: No radiodense calculus. No wall thickening or pericholecystic fluid. No biliary dilation. Pancreas: Normal density. No abnormal calcifications or inflammatory process. No evidence of mass. Spleen: Normal. Kidneys: Normal size, contour and axis. No radiodense stones. No obstructive uropathy. No suspicious masses seen. Adrenal glands: No masses seen. Vasculature: Abdominal aorta non-dilated. Soft tissues: Unremarkable. Bladder: No gross wall thickening. No calculi.No focal mass. Bowel: There is appendicoliths at the base of the appendix. The appendix is mildly distended to 8 mi nute millimeters and is fluid filled. There is a small amount of free fluid in the low pelvis. The findings are consistent with appendicitis. no obstruction. No small bowel or colonic wall thicken ing. Peritoneal cavity: Small amount of free fluid in the low pelvis. No focal collection. Mild mesenteri c inflammatory response. No free air. Bones: Unremarkable for age. Reproductive organs: Unremarkable. Lymph nodes: No pathologically enlarged lymph nodes. IMPRESSION:: Findings are consistent with acute appendicitis. No evidence of perforation or abscess . Findings were discussed with Dr. Nagi Melendez. RADIATION DOSE DELIVERED: 328.09mGy.cm Total DLP DATA REPOSITORY: All CT scans at this facility are submitted to the National Radiology Data Registry (NRDR) Dose Index Registry (DIR) with the [employer] ([employer]). RADIATION OPTIMIZATION: All CT scans at this facility use at least one of these dose optimization te chniques: automated exposure control; mA and/or kV adjustment per patient size (includes targeted exa ms where dose is matched to clinical indication); or iterative reconstruction.
--- NOTE | 2025-01-21 19:52 | ED.GENADUL_ITS ---
Discharge Plan Disposition Patient Disposition: [facility] to [facility] Condition: Stable Discharge Details Chief Complaint: Abd Prob Clinical Impression: Acute appendicitis Primary Care Provider: Catarina Krishnamurthy ED Provider: Jay Bermudez Home Meds and New Rx's Prescriptions: No Action No Known Home Meds HPI General Date/Time Provider Initiated Documentation: 01/21/25 19:35 . HPI Narrative: 19-year-old male presents to the emergency department by POV/ambulating with a chief complaint of right lower quadrant abdominal pain, severe and stabbing in nature. The pain started around 330 today and was more umbilical and migrated to the right lower quadrant, he has had a hard time eating and has vomited twice today, states his pain is worse with any oral intake, he has made no interventions for palliation, any movement like bumps in the road on the way here was provoking worse pain, patient has only a hernia repair and surgical history and is otherwise relatively healthy. Related Data Home Medications ?Medication ?Instructions ?Recorded ?Confirmed Unknown [No Known Home Meds] 07/14/24 01/21/25 Allergies Allergy/AdvReac Type Severity Reaction Status Date / Time cat dander Allergy Unknown Unknown Verified 01/21/25 19:35 horse dander Allergy Unknown Unknown Verified 01/21/25 19:35 house dust mite Allergy Unknown Unknown Verified 01/21/25 19:35 pollen extracts Allergy Unknown Unknown Verified 01/21/25 19:35 General Stated Complaint: Abd Prob RAHEL: 3 Review of Systems All systems reviewed & are unremarkable except as noted in HPI and below Exam Narrative Exam Narrative: GENERAL APPEARANCE: Well-nourished, non-toxic, awake and alert, atraumatic, no acute distress. SKIN: Warm, pink, dry, intact, without rashes/lesions/ulcerations. HEAD: Normocephalic, atraumatic, normal hair distribution for gender/age. EYES: Normal conjunctiva, no exudates on lids/lashes. ENT: Nares patent, no circumoral cyanosis, no facial swelling NECK: Supple, trachea midline, painless cervical ROM. LUNGS/CHEST: Lungs CTA bilaterally, non-labored respirations, normal A/P diameter, symmetrical expansion, no chest wall deformity HEART (CV/PV): Regular rate and rhythm without murmur, no peripheral edema, no J VD. ABDOMEN: Soft, non-distended, no guarding, RLQ tenderness at McBurney's point, + Rovsing's with LLQ palpation, + Psoas sign. MSK: Normal ROM, no swelling/deformity to bilateral UEs or LEs, moving all extremities without weakness, no cyanosis, spine midline without tenderness, normal curvature. NEURO: Mental Status AAOx4 - alert to person, place, time, events No facial droop, no forehead involvement. Motor: No focal weakness - strength 5/5 in bilateral UEs and LEs, proximal and distal, symmetric. Sensory: sensation intact to light touch globally. Gait normal: patient ambulated without ataxia into ED room. PSYCH: euthymic, cooperative, pleasant, appropriate speech Course Vital Signs Vital signs: Vital Signs Temperature 36.9 C 01/21/25 19:32 Pulse 89 01/21/25 19:32 Respiratory Rate 16 01/21/25 19:32 Blood Pressure 139/74 01/21/25 19:32 Pulse Oximetry 98 01/21/25 19:32 Temperature 36.9 C 01/21/25 19:33 Pulse 89 01/21/25 19:33 Respiratory Rate 16 01/21/25 19:33 Blood Pressure 139/74 01/21/25 19:33 Pulse Oximetry 98 01/21/25 19:33 Pain Level 9 01/21/25 19:33 Medical Decision Making This dictation utilizes [id number] dictation software and may contain unedited grammatical errors. 19-year-old male presents to the emergency department by POV/ambulating with a chief complaint of right lower quadrant abdominal pain, severe and stabbing in nature. The pain started around 330 today and was more umbilical and migrated to the right lower quadrant, he has had a hard time eating and has vomited twice today, states his pain is worse with any oral intake, he has made no interventions for palliation, any movement like bumps in the road on the way here was provoking worse pain, patient has only a hernia repair and surgical history and is otherwise relatively healthy. Patients' medical history: History of left inguinal hernia repair, unintentional weight loss and night sweats. Family and social history: Noncontributory. Pertinent exam findings / vital signs include right lower quadrant tenderness at McBurney's point with rebound tenderness, positive Rovsing signs with palpation of left lower quadrant with pain to right lower quadrant, psoas positive, benign cardiopulmonary status, nontoxic and afebrile. Differential / pathologies of concern include appendicitis, gastroenteritis, perforated viscus, UTI, renal colic. Diagnostic studies of: - CBC, CMP, lactate, CRP, UA, blood cultures, CT ABD/pelvis with contrast. - CBC shows white count of 18.5 with elevated absolute neutrophils - Lactate negative - CRP negative, early in course of illness though - CMP is unremarkable - Blood cultures pending - Urinalysis pending at time of admission as the patient has not given sample - CT ABD/pelvis shows appendicolith with some fat stranding by my read, [facility]Rad read as appendix surgically absent, I did phone them and discussed this as well as with Dr. Melendez who agrees with my read Interventions of: - IVF 1 L NS, 1 g IV Tylenol, 15 mg IVP ketorolac, 4 mg IVP Zofran, 0.5 mg IVP hydromorphone as needed every 4 hours, 4.5 g Zosyn IV. ED Course/Assessment/Plan: 19-year-old male presents with right lower quadrant abdominal pain since 330 today with anorexia and some nausea and vomiting, his pain is severe and stabbing at McBurney's point and he has peritoneal signs on exam classic for appendicitis. His CT shows an appendicolith, he has an elevated white blood cell count but no elevation of lactate or CRP but he is early in course in the first few hours of his likely appendicitis. I discussed this case with general surgery Dr. Melendez who admits, he will continue antibiotics overnight and reevaluate in the morning with possible appendectomy at that time, counseled the patient of this plan and he is agreeable appendectomy. Findings not consistent with sepsis, ruptured appendix. Disposition of Acute Appendicitis. Patient verbalized understanding of the plan and return to ED criteria and engaged in shared decision making. Medical Records Medical records reviewed: Yes I reviewed the patient's medical records. Imaging Data Radiologic Study: Attestation: I personally reviewed and interpreted this imaging study as follows: Imaging: CT Scan Radiologist's impression: Addendum created by Michael Quinones MD on 01/21/2025 9:32:57 PM EDT: ADDENDUM: Second look requested. The patient has not had an appendectomy. The appendix is mildly distended at 8 mm diameter and is fluid-filled. An appendicolith is noted. Findings were discussed with JAY BERMUDEZ at 01/21/2025 9:30 PM EDT. Initial report created on 01/21/2025 9:10:35 PM EDT: PROCEDURE INFORMATION: Exam: CT Abdomen And Pelvis With Contrast Exam date and time: 01/21/2025 8:19 PM Age: 19 years old Clinical indication: Abdominal pain; Other: Right lower quadrant pain, appy TECHNIQUE: Imaging protocol: Computed tomography of the abdomen and pelvis with contrast. Contrast material: OMNIPAQUE 350; Contrast volume: 75 ml; Contrast route: INTRAVENOUS (IV); COMPARISON: CT CHEST/ABD/PEL W 07/14/2024 10:14 AM FINDINGS: Lungs: Lung bases are clear. Liver: Homogeneous liver parenchyma. No suspicious mass. Gallbladder and biliary ducts: Normal. No calcified stones. No ductal dilation. Pancreas: Normal. No ductal dilation. Spleen: Normal. No splenomegaly. Adrenal glands: Normal. No mass. Kidneys and ureters: Symmetric enhancement. No hydronephrosis. Non-dilated ureters. No stones. Stomach and bowel: Unremarkable stomach. Nondilated small bowel. Fat planes around loops of small bowel are indistinct. There are no inflammatory changes observed around the colon. Appendix: The appendix is surgical absent. Intraperitoneal space: Mild mesenteric fat stranding. Mild pelvic free-fluid. No free air. No abscess. Vasculature: Unremarkable. No abdominal aortic aneurysm. Lymph nodes: Mesenteric lymph nodes are mildly prominent. No suspicious retroperitoneal lymphadenopathy. Urinary bladder: Unremarkable as visualized. Reproductive: Unremarkable as visualized. Bones/joints: Disc space narrowing and osteophyte formation are noted at L5-S1. Moderate disc space narrowing and Schmorl's nodes are noted T10-T11. Soft tissues: No significant abdominal wall hernia. IMPRESSION: Suspect generalized infectious/inflammatory enteritis. No bowel obstruction. No abscess. Dictated and Authenticated by: Michael Quinones MD. Lab Data Lab results reviewed: Yes I reviewed the patient's lab results. Labs: 01/21/25 20:13 Blood Blood Culture - Pending 01/21/25 20:09 Blood Blood Culture - Pending Laboratory Tests Range/Units 01/21/25 01/21/25 19:45 21:38 WBC (4.4-10.8) 10^3/uL 18.58 H Cancelled RBC (4.36-5.78) 10^6/uL 4.60 Cancelled Hgb (13.5-17.5) g/dL 14.1 Cancelled Hct (40.0-50.0) % 41.5 Cancelled MCV (80-95) fL 90 Cancelled MCH (27.0-33.0) pg 30.7 Cancelled MCHC (32.0-36.0) % 34.0 Cancelled RDW (11.8-14.1) % 12.5 Cancelled Plt Count (130-400) 10^3/uL 224 Cancelled MPV (8.0-11.0) fL 10.9 Cancelled Immature Gran % % 0.4 Cancelled Neutrophils % % 85.4 Cancelled Band Neutrophils % Cancelled Lymphocytes % % 8.3 Cancelled Atypical Lymphs % Cancelled Monocytes % % 5.5 Cancelled Eosinophils % % 0.2 Cancelled Basophils % % 0.2 Cancelled Metamyelocytes % Cancelled Myelocytes % Cancelled Promyelocytes % Cancelled Other Cells % Cancelled Nucleated RBC % (0.0-0.3) % 0.0 Cancelled Absolute Neutrophils (1.2-6.7) 10^3/uL 15.87 H Cancelled Absolute Lymphocytes (1.2-3.4) 10^3/uL 1.54 Cancelled Absolute Monocytes (0.1-0.8) 10^3/uL 1.02 H Cancelled Absolute Eosinophils (0.0-0.7) 10^3/uL 0.04 Cancelled Absolute Basophils (0.0-0.2) 10^3/uL 0.04 Cancelled RBC Morphology Cancelled Polychromasia Cancelled Hypochromasia Cancelled Poikilocytosis Cancelled Basophilic Stippling Cancelled Anisocytosis Cancelled Microcytosis Cancelled Macrocytosis Cancelled Spherocytes Cancelled Tear Drop Cells Cancelled Ovalocytes Cancelled Stomatocytes Cancelled [place] Bodies Cancelled Paul Cells/Echinocytes Cancelled Acanthocytes (Spur) Cancelled Schistocytes Cancelled VBG Lactate (<or=2.0) mmol/L 1.3 Sodium (136-145) mmol/L 140 Potassium (3.5-5.1) mmol/L 3.7 Chloride (98-107) mmol/L 103 Carbon Dioxide (21.0-32.0) mmol/L 27.6 Anion Gap (3-11) mmol/L 9.4 BUN (7-18) mg/dL 16 Creatinine (0.70-1.30) mg/dL 1.0 Est GFR (CKD-EPI 2020) (mL/min/1.73m2) 110.50 Glucose (74-106) mg/dL 107 H Calcium (8.5-10.1) mg/dL 9.5 Total Bilirubin (0.2-1.0) mg/dL 0.6 AST (15-37) U/L 20 ALT (16-63) U/L 21 Alkaline Phosphatase (46-116) U/L 84 C-Reactive Protein (<or=0.5) mg/dL < 0.50 Total Protein (6.4-8.2) g/dL 7.6 Albumin (3.4-5.0) g/dL 4.7 Lipase (<78) U/L 19 Quality:SDOH Health Related Social Needs: No Data to Display PFSH All Active Problems (Updated 01/21/25 @ 21:54 by JAZZY Silva) Acute appendicitis (Acute) Pilonidal cyst (Acute) Medical History (Updated 01/21/25 @ 21:54 by JAZZY Silva) Night sweats (~02/2024) Unintentional weight loss (~07/14/24) Surgical History (Updated 12/17/24 @ 14:08 by Johanna Rubio RN) History of left inguinal hernia repair (~11/01/20) Social History Smoking/Tobacco Use Status: Never Smoking risk assessment performed?: Yes Alcohol Intake: never Drug use: Daily Substance use type: marijuana Housing: house Do you feel safe at home: Yes Do you feel safe in your relationship?: Yes
[2025-01-21 20:06] LABS: Lactate 1.3 mmol/L (<or=2.0)
[2025-01-21 20:10] LABS: Abs Immature Grans 0.08 10^3/uL (0.0-0.06); Basophils % 0.2 %; Eosinophils % 0.2 %; HCT 41.5 % (40.0-50.0); HGB 14.1 g/dL (13.5-17.5); Immature Grans % 0.4 %; Lymphocytes % 8.3 %; MCH 30.7 pg (27.0-33.0); MCV 90 fL (80-95); MPV 10.9 fL (8.0-11.0); Monocytes % 5.5 %; Neutrophils % 85.4 %; Platelet Count 224 10^3/uL (130-400); RDW 12.5 % (11.8-14.1); RDW-SD 41.4 fL; WBC 18.58 10^3/uL (4.4-10.8)
[2025-01-21 20:11] LABS: Absolute Basophil Count 0.04 10^3/uL (0.0-0.2); Absolute Eosinophil Count 0.04 10^3/uL (0.0-0.7); Absolute Lymphocyte Count 1.54 10^3/uL (1.2-3.4); Absolute Monocyte Count 1.02 10^3/uL (0.1-0.8); Absolute Neutrophil Count 15.87 10^3/uL (1.2-6.7)
[2025-01-21] MEDS: Ketorolac 15 MG/ML VIAL IVP (20:15)
[2025-01-21] MEDS: ACETAMINOPHEN 1,000 MG/100 ML BTL 400 MG IVPB (20:15)
[2025-01-21] MEDS: Ondansetron 4 MG/2 ML VIAL IVP (20:15)
[2025-01-21] MEDS: Normal Saline 1,000 ML 1000 ML IV (20:15)
[2025-01-21 20:24] LABS: Lipase 19 U/L (<78)
[2025-01-21 20:27] LABS: ALT 21 U/L (16-63); AST 20 U/L (15-37); Albumin 4.7 g/dL (3.4-5.0); Alkaline Phosphatase 84 U/L (46-116); Anion Gap 9.4 mmol/L (3-11); BUN 16 mg/dL (7-18); Bilirubin, Total 0.6 mg/dL (0.2-1.0); C-Reactive Protein < 0.50 mg/dL (<or=0.5); CO2 27.6 mmol/L (21.0-32.0); Calcium 9.5 mg/dL (8.5-10.1); Chloride 103 mmol/L (98-107); Glucose 107 mg/dL (74-106); Potassium 3.7 mmol/L (3.5-5.1); Sodium 140 mmol/L (136-145); Total Protein 7.6 g/dL (6.4-8.2)
[2025-01-21] MEDS: Omnipaque 350 MG/ML 100 ML BTL 75 ML IJ (20:30)
[2025-01-21] MEDS: Normal Saline - Diluent 50 ML VIAL IJ (20:31)
[2025-01-21] MEDS: PIPERACILLIN/TAZO 4.5 GM in Normal Saline 100 ML IVPB (20:49)
[2025-01-21] MEDS: HYDROmorphone 2 MG/ML SYR 0.5 MG IVP (20:53)
--- NOTE | 2025-01-21 21:10 | DI.VRAD_ITS ---
Addendum created by Michael Quinones MD on 01/21/2025 9:32:57 PM EDT: ADDENDUM: Second look requested. The patient has not had an appendectomy. The appendix is mildly distended at 8 mm diameter and is fluid-filled. An appendicolith is noted. Findings were discussed with ANTONELLA BERMUDEZ at 01/21/2025 9:30 PM EDT. Initial report created on 01/21/2025 9:10:35 PM EDT: PROCEDURE INFORMATION: Exam: CT Abdomen And Pelvis With Contrast Exam date and time: 01/21/2025 8:19 PM Age: 19 years old Clinical indication: Abdominal pain; Other: Right lower quadrant pain, appy TECHNIQUE: Imaging protocol: Computed tomography of the abdomen and pelvis with contrast. Contrast material: OMNIPAQUE 350; Contrast volume: 75 ml; Contrast route: INTRAVENOUS (IV); COMPARISON: CT CHEST/ABD/PEL W 07/14/2024 10:14 AM FINDINGS: Lungs: Lung bases are clear. Liver: Homogeneous liver parenchyma. No suspicious mass. Gallbladder and biliary ducts: Normal. No calcified stones. No ductal dilation. Pancreas: Normal. No ductal dilation. Spleen: Normal. No splenomegaly. Adrenal glands: Normal. No mass. Kidneys and ureters: Symmetric enhancement. No hydronephrosis. Non-dilated ureters. No stones. Stomach and bowel: Unremarkable stomach. Nondilated small bowel. Fat planes around loops of small bowel are indistinct. There are no inflammatory changes observed around the colon. Appendix: The appendix is surgical absent. Intraperitoneal space: Mild mesenteric fat stranding. Mild pelvic free-fluid. No free air. No abscess. Vasculature: Unremarkable. No abdominal aortic aneurysm. Lymph nodes: Mesenteric lymph nodes are mildly prominent. No suspicious retroperitoneal lymphadenopathy. Urinary bladder: Unremarkable as visualized. Reproductive: Unremarkable as visualized. Bones/joints: Disc space narrowing and osteophyte formation are noted at L5-S1. Moderate disc space narrowing and Schmorl's nodes are noted T10-T11. Soft tissues: No significant abdominal wall hernia. IMPRESSION: Suspect generalized infectious/inflammatory enteritis. No bowel obstruction. No abscess. Dictated and Authenticated by: Michael Quinones MD. Orderin Dhruv Thompson MD
--- NOTE | 2025-01-21 21:38 | HPE_ITS ---
Date of service: 01/21/25 Time of Service: 21:38 Assessment and Plan Assessment and plan (1) Acute appendicitis: Status: Acute Assessment and plan: Certainly, the history does have features of acute appendicitis, and the leukocytosis without any other source would support that. Interestingly, the CT scan is not all that compelling, although the appendicolith would point to the appendix as a source of his discomfort as well. I will see what the white blood cell count is today, and I would like a second interpretation of the CT scan by our radiologist here this morning. History of Present Illness History of Present Illness Chief Complaint: Abdominal pain Narrative: Giovanni is 19 years old. He noticed the acute onset of abdominal pain, mostly in the right lower quadrant yesterday around 2 PM. This was associated with a subjective sense of fever, and a little bit of feeling like he might pass out. He had 1 episode of emesis associated with this. Symptoms improved a little bit, but pain did persist, so he came to the emergency department last evening. He had a white blood cell count around 18,000, and underwent a CT scan that suggested possible enteritis. He does, however, and have an appendicolith on that CT scan as well. He has never had any abdominal surgery before. He has some typical environmental allergies, but no medical allergies. He is got no significant family history of any type of gastrointestinal disease. Review of Systems Constitutional Constitutional: Denies body ache(s), Reports fatigue, Denies fever(s) and Denies poor appetite Eyes Eyes: Reports system reviewed and no additional complaints, except as documented ENT Ears, Nose, Mouth, and Throat: Reports system reviewed and no additional complaints, except as documented Cardiovascular Cardiovascular: Denies chest pain and Denies dyspnea Respiratory Respiratory: Denies chest congestion, Denies cough and Denies dyspnea Gastrointestinal Gastrointestinal: Reports abdominal pain and Denies change in bowel habits Genitourinary Genitourinary: Reports system reviewed and no additional complaints, except as documented Musculoskeletal Musculoskeletal: Reports system reviewed and no additional complaints, except as documented Neurologic Neurologic: Reports system reviewed and no additional complaints, except as documented Psychiatric Psychiatric: Reports system reviewed and no additional complaints, except as documented Endocrine Endocrine: Reports fatigue Hematologic/Lymphatic Hematologic/Lymphatic: Denies easy bleeding and Denies easy bruising PFSH All Active Problems (Updated 01/21/25 @ 21:54 by JAZZY Silva) Acute appendicitis (Acute) Pilonidal cyst (Acute) Medical History (Updated 01/21/25 @ 21:54 by JAZZY Silva) Night sweats (~02/2024) Unintentional weight loss (~07/14/24) Surgical History (Updated 12/17/24 @ 14:08 by Johanna Rubio RN) History of left inguinal hernia repair (~11/01/20) Social History Smoking/Tobacco Use Status: Never Smoking risk assessment performed?: Yes Alcohol Intake: never Drug use: Daily Substance use type: marijuana Housing: house Do you feel safe at home: Yes Do you feel safe in your relationship?: Yes Meds Allergies and Home Medications Allergies Allergy/AdvReac Type Severity Reaction Status Date / Time cat dander Allergy Unknown Unknown Verified 01/21/25 19:35 horse dander Allergy Unknown Unknown Verified 01/21/25 19:35 house dust mite Allergy Unknown Unknown Verified 01/21/25 19:35 pollen extracts Allergy Unknown Unknown Verified 01/21/25 19:35 Home Medications ?Medication ?Instructions ?Recorded ?Confirmed ?Type Unknown [No Known Home Meds] 07/14/24 01/21/25 History Exam Const General: cooperative, healthy appearing and comfortable Orientation: alert, awake and oriented x3 HENMT Head: normal to inspection Eyes General: appearance normal, both eyes and all related structures Neck Neck: normal visual inspection, full ROM and no lymphadenopathy Resp Effort & Inspection: normal respiratory effort and able to speak in complete sentences Auscultation: clear to auscultation bilaterally Cardio Rate: regular rate Rhythm: regular rhythm Heart Sounds: S1 normal and S2 normal GI Inspection: normal to inspection and non-distended Palpation: soft and tender (Mild right lower quadrant and suprapubic) Percussion: normal to percussion Auscultation: normal bowel sounds Extrem Right lower extremity: no edema Left lower extremity: no edema Results Labs 01/21/25 19:45 01/21/25 19:45 Labs: Laboratory Results - last 24 hr 01/21/25 19:45 WBC 18.58 H RBC 4.60 Hgb 14.1 Hct 41.5 MCV 90 MCH 30.7 MCHC 34.0 RDW 12.5 Plt Count 224 MPV 10.9 Immature Gran % 0.4 Neutrophils % 85.4 Lymphocytes % 8.3 Monocytes % 5.5 Eosinophils % 0.2 Basophils % 0.2 Nucleated RBC % 0.0 Absolute Neutrophils 15.87 H Absolute Lymphocytes 1.54 Absolute Monocytes 1.02 H Absolute Eosinophils 0.04 Absolute Basophils 0.04 VBG Lactate 1.3 Sodium 140 Potassium 3.7 Chloride 103 Carbon Dioxide 27.6 Anion Gap 9.4 BUN 16 Creatinine 1.0 Est GFR (CKD-EPI 2020) 110.50 Glucose 107 H Calcium 9.5 Total Bilirubin 0.6 AST 20 ALT 21 Alkaline Phosphatase 84 C-Reactive Protein < 0.50 Total Protein 7.6 Albumin 4.7 Lipase 19 Last Vital Signs Temp 98.4 F 01/21/25 19:33 Pulse 89 01/21/25 19:33 Resp 16 01/21/25 19:33 BP 139/74 01/21/25 19:33 Pulse Ox 98 01/21/25 19:33 Time Spent Time spent with Patient: 40-54 minutes Time was spent: preparing to see the patient(eg.review tests), obtaining and/or reviewing separately otained hiistory, referring, communicating with other health healthcare insurance sales agent, indepentently interpreting results and counseling the patient
--- NOTE | 2025-01-21 22:40 | W.PCEDHO ---
Registration Status: Primary Language: Preferred Language: ED Information & Data Chief Complaint Abd Prob 01/21/25 19:52 Triage Note RLQ pain starting ~ 1530, x2 01/21/25 19:32 episodes of vomiting, worse after eating or drinking Medical / Surgical History (Last Updated 12/17/24 @ 14:02 by Johanna Rubio RN) Night sweats (~02/2024) Unintentional weight loss (~07/14/24) (Last Updated 12/17/24 @ 14:08 by Johanna Rubio RN) History of left inguinal hernia repair (~11/01/20) Most Recent Vital Signs Temperature 36.9 C 01/21/25 19:33 Pulse 73 01/21/25 20:45 Respiratory Rate 16 01/21/25 19:33 Blood Pressure 111/71 01/21/25 20:45 Blood Pressure Mean 81 01/21/25 20:45 Pulse Oximetry 98 01/21/25 20:45 Pain Level 9 01/21/25 19:33 Allergies cat dander Allergy (Unknown, Verified 01/21/25 19:35) Unknown horse dander Allergy (Unknown, Verified 01/21/25 19:35) Unknown house dust mite Allergy (Unknown, Verified 01/21/25 19:35) Unknown pollen extracts Allergy (Unknown, Verified 01/21/25 19:35) Unknown Active Medications Generic Name Dose Route Start Last Admin Trade Name Freq PRN Reason Stop Dose Admin Hydromorphone HCl 0.5 mg 01/21/25 19:55 01/21/25 20:53 Hydromorphone 2 Mg/Ml Syr IVP 0.5 mg Q4H PRN PRN Administration Iohexol 75 ml 01/21/25 20:30 01/21/25 20:30 Omnipaque 350 Mg/Ml 100 Ml Btl IJ 02/20/25 23:59 75 ml DIRECTED ANNY Administration Sodium Chloride 50 ml 01/21/25 20:45 01/21/25 20:31 Normal Saline - Diluent 50 Ml Vial IJ 50 ml .FOR DI USE ANNY Administration IV IV Catheter Type [Right Saline Lock Antecubital] IV Catheter Gauge [Right 18 Antecubital] Diagnostics 01/21/25 01/21/25 Range/Units 21:38 19:45 WBC Cancelled 18.58 H (4.4-10.8) 10^3/uL RBC Cancelled 4.60 (4.36-5.78) 10^6/uL Hgb Cancelled 14.1 (13.5-17.5) g/dL Hct Cancelled 41.5 (40.0-50.0) % MCV Cancelled 90 (80-95) fL MCH Cancelled 30.7 (27.0-33.0) pg MCHC Cancelled 34.0 (32.0-36.0) % RDW Cancelled 12.5 (11.8-14.1) % Plt Count Cancelled 224 (130-400) 10^3/uL MPV Cancelled 10.9 (8.0-11.0) fL Immature Gran % Cancelled 0.4 % Neutrophils % Cancelled 85.4 % Band Neutrophils % Cancelled Lymphocytes % Cancelled 8.3 % Atypical Lymphs % Cancelled Monocytes % Cancelled 5.5 % Eosinophils % Cancelled 0.2 % Basophils % Cancelled 0.2 % Metamyelocytes % Cancelled Myelocytes % Cancelled Promyelocytes % Cancelled Other Cells % Cancelled Nucleated RBC % Cancelled 0.0 (0.0-0.3) % Absolute Neutrophils Cancelled 15.87 H (1.2-6.7) 10^3/uL Absolute Lymphocytes Cancelled 1.54 (1.2-3.4) 10^3/uL Absolute Monocytes Cancelled 1.02 H (0.1-0.8) 10^3/uL Absolute Eosinophils Cancelled 0.04 (0.0-0.7) 10^3/uL Absolute Basophils Cancelled 0.04 (0.0-0.2) 10^3/uL RBC Morphology Cancelled Polychromasia Cancelled Hypochromasia Cancelled Poikilocytosis Cancelled Basophilic Stippling Cancelled Anisocytosis Cancelled Microcytosis Cancelled Macrocytosis Cancelled Spherocytes Cancelled Tear Drop Cells Cancelled Ovalocytes Cancelled Stomatocytes Cancelled [place] Bodies Cancelled Paul Cells/Echinocytes Cancelled Acanthocytes (Spur) Cancelled Schistocytes Cancelled VBG Lactate 1.3 (<or=2.0) mmol/L Sodium 140 (136-145) mmol/L Potassium 3.7 (3.5-5.1) mmol/L Chloride 103 (98-107) mmol/L Carbon Dioxide 27.6 (21.0-32.0) mmol/L Anion Gap 9.4 (3-11) mmol/L BUN 16 (7-18) mg/dL Creatinine 1.0 (0.70-1.30) mg/dL Est GFR (CKD-EPI 2020) 110.50 (mL/min/1.73m2) Glucose 107 H (74-106) mg/dL Calcium 9.5 (8.5-10.1) mg/dL Total Bilirubin 0.6 (0.2-1.0) mg/dL AST 20 (15-37) U/L ALT 21 (16-63) U/L Alkaline Phosphatase 84 (46-116) U/L C-Reactive Protein < 0.50 (<or=0.5) mg/dL Total Protein 7.6 (6.4-8.2) g/dL Albumin 4.7 (3.4-5.0) g/dL Lipase 19 (<78) U/L 01/21/25 20:13 Blood Culture - Pending Blood 01/21/25 20:09 Blood Culture - Pending Blood Intake and Output - 24 Hour Total 01/21/25 19:27 thru 01/21/25 22:28 Intake Total 1200 Balance 1200 Weight 68.039 kg Intake: IV 1200 Falls Risk Assessment History of Falls No History 01/21/25 19:49 Contributing Factors No Factors 01/21/25 19:49 Ambulatory Aids Independent 01/21/25 19:49 Tubes/Lines None 01/21/25 19:49 Gait Evaluation No gait disturbance 01/21/25 19:49 Cognition No cognitive impairment 01/21/25 19:49 Fall Total Score 0 01/21/25 19:49 Level of Risk Standard/Low Risk 01/21/25 19:49 v v v v v v v v v Sending and/or Receiving Nurses: Please use comment section below to note any information pertinent to the patient hand-off not included above. Information / Comments: 0.5mg dilaudid, IVP zofran, 1 L NS, pip/moses, A&O, able to ambulate independently. NPO. OR in the morning for appendectomy with Melendez. Report received from: Gianluca Akers RN
[2025-01-21] MEDS: Lactated Ringers 1,000 ML 75 ML IV (23:00)
[2025-01-22] VITALS (21 sets, daily range): BP systolic 94–121; BP diastolic 48–69; PULSE 48–68; RESP 13–22; TEMP 36.1–36.6; O2SAT 99–100; BMI 21.2
[2025-01-22] MEDS: ACETAMINOPHEN 1,000 MG/100 ML BAG 400 MG IVPB ×2 (02:15→07:55)
[2025-01-22] MEDS: Ketorolac 15 MG/ML VIAL IVP ×2 (04:14→10:14)
[2025-01-22] MEDS: Normal Saline Flush 10 ML SYR IVP ×4 (04:14→10:53)
[2025-01-22] MEDS: PIPERACILLIN/TAZO 3.375 GM in Normal Saline 50 ML IVPB ×2 (04:15→10:01)
[2025-01-22 04:41] LABS: Bilirubin Negative (Negative); Blood Negative (Negative); Clarity Clear (Clear); Glucose Negative (Negative); Ketones 15 mg/dL (Negative); Leukocyte Esterase Negative (Negative); Nitrite Negative (Negative); Specific Gravity 1.015 (1.005-1.025); Urobilinogen 0.2 mg/dL (Up to 0.2); pH 6.5 (5-8)
[2025-01-22 06:54] LABS: HCT 36.7 % (40.0-50.0); HGB 12.8 g/dL (13.5-17.5); MCH 31.6 pg (27.0-33.0); MCHC 34.9 % (32.0-36.0); MCV 91 fL (80-95); MPV 11.1 fL (8.0-11.0); Platelet Count 187 10^3/uL (130-400); RBC 4.05 10^6/uL (4.36-5.78); RDW 12.6 % (11.8-14.1); RDW-SD 42.1 fL; WBC 10.96 10^3/uL (4.4-10.8)
--- NOTE | 2025-01-22 09:20 | ANES.PREOP_ITS ---
General Info Date of Service Date Performed: 01/22/25 Height: 5 ft 11 in Weight: 68.946 kg Body Mass Index (BMI): 21.2 Surgical Procedure: Operation Date: 01/22/25 12:10 Proposed Procedure Side Surgeon p Appendectomy Laparoscopic Nagi Melendez MD Meds Allergies and Home Medications Allergies Allergy/AdvReac Type Severity Reaction Status Date / Time cat dander Allergy Unknown Unknown Verified 01/21/25 19:35 horse dander Allergy Unknown Unknown Verified 01/21/25 19:35 house dust mite Allergy Unknown Unknown Verified 01/21/25 19:35 pollen extracts Allergy Unknown Unknown Verified 01/21/25 19:35 Home Medication ?Medication ?Instructions ?Recorded Unknown [No Known Home Meds] 07/14/24 Current Visit Medications: Current Medications Generic Name Dose Route Start Last Admin Trade Name Freq PRN Reason Stop Dose Admin Enoxaparin Sodium 40 mg 01/22/25 10:00 Enoxaparin 40 Mg/0.4 Ml Syr SC Q24H ANNY Ringer's Solution 1,000 mls @ 75 mls/hr 01/21/25 22:46 01/22/25 04:50 IV 75 mls/hr INFUSION ANNY Infusion Piperacillin Sod/Tazobactam 50 mls @ 100 mls/hr 01/22/25 04:00 01/22/25 04:45 Sod 3.375 gm/ Sodium Chloride IVPB Infused Q6H ANNY Infusion Acetaminophen 1,000 mg in 100 mls @ 400 mls/hr 01/22/25 02:00 01/22/25 08:36 Ofirmev IVPB Infused Q6H ANNY Infusion IV Miscellaneous Supplies 1 each 01/21/25 22:46 Iv Access IV DIRECTED ANNY Ketorolac Tromethamine 15 mg 01/21/25 22:46 01/22/25 04:14 Ketorolac 15 Mg/Ml Vial IVP 01/26/25 22:45 15 mg Q6H PRN PRN Administration Ondansetron HCl 4 mg 01/21/25 22:46 Ondansetron 4 Mg/2 Ml Vial IVP Q4H PRN PRN Simethicone 80 mg 01/21/25 22:46 Simethicone 80 Mg Chew PO Q4H PRN PRN Sodium Chloride 0 ml 01/21/25 22:46 01/22/25 04:14 Normal Saline Flush 10 Ml Syr IVP 10 ml PRN PRN Administration Sodium Chloride 0 ml 01/22/25 08:30 01/22/25 07:55 Normal Saline Flush 10 Ml Syr IVP 10 ml BID ANNY Administration Sodium Chloride 0 ml 01/21/25 22:46 Normal Saline 10 Ml Vial IJ DIRECTED PRN PFSH Active Problems Active Problems: Problem Status Onset Code Acute appendicitis Acute K35.80 Pilonidal cyst Acute L05.91 Medical History Medical History (Updated 01/21/25 @ 21:54 by JAZZY Silva) Night sweats (~02/2024) Unintentional weight loss (~07/14/24) Surgical History Surgical History (Updated 12/17/24 @ 14:08 by Johanna Rubio RN) History of left inguinal hernia repair (~11/01/20) Tobacco Smoking/Tobacco Use Status: Never Alcohol Alcohol Intake: never Substance Use Substance use: Daily Substance use type: marijuana Vital Signs and Lab Results Vital Signs Most Recent Vital Signs in EMR: Most Recent Vital Signs Temp Pulse Resp BP Pulse Ox 36.4 C L 52 L 16 105/64 100 01/22/25 07:32 01/22/25 07:32 01/22/25 07:32 01/22/25 07:32 01/22/25 07:32 Lab Results 01/22/25 06:32 01/21/25 19:45 Blood Type / Crossmatch: 2 No Data to Display Complete Blood Count: 2 White Blood Count 10.96 10^3/uL (4.4-10.8) H 01/22/25 06:32 Red Blood Count 4.05 10^6/uL (4.36-5.78) L 01/22/25 06:32 Hemoglobin 12.8 g/dL (13.5-17.5) L 01/22/25 06:32 Hematocrit 36.7 % (40.0-50.0) L 01/22/25 06:32 Platelet Count 187 10^3/uL (130-400) 01/22/25 06:32 Venous Blood Lactate 1.3 mmol/L (<or=2.0) 01/21/25 19:45 Complete Metabolic Panel: 2 Sodium 140 mmol/L (136-145) 01/21/25 19:45 Potassium 3.7 mmol/L (3.5-5.1) 01/21/25 19:45 Chloride 103 mmol/L (98-107) 01/21/25 19:45 Carbon Dioxide 27.6 mmol/L (21.0-32.0) 01/21/25 19:45 BUN 16 mg/dL (7-18) 01/21/25 19:45 Creatinine 1.0 mg/dL (0.70-1.30) 01/21/25 19:45 Est GFR (CKD-EPI 2020) 110.50 (mL/min/1.73m2) 01/21/25 19:45 Calcium 9.5 mg/dL (8.5-10.1) 01/21/25 19:45 Albumin 4.7 g/dL (3.4-5.0) 01/21/25 19:45 Glucose 107 mg/dL (74-106) H 01/21/25 19:45 C-Reactive Protein < 0.50 mg/dL (<or=0.5) 01/21/25 19:45 Liver Function Panel: 2 Alanine Aminotransferase (ALT/SGPT) 21 U/L (16-63) 01/21/25 19: 45 Aspartate Amino Transf (AST/SGOT) 20 U/L (15-37) 01/21/25 19:45 Coagulation Panel: 2 No Data to Display Cardiac Panel: 2 No Data to Display Arterial Blood Gas: 2 No Data to Display Venous Blood Gas: 2 No Data to Display Pancreas Panel: 2 Lipase 19 U/L (<78) 01/21/25 19:45 Thyroid Panel: 2 No Data to Display Infectious Disease: 2 No Data to Display Blood Cultures: 2 No Data to Display Toxicology Panel: 2 No Data to Display Anesthesia Assessment and Plan Anesthesia History Personal History: No History of Anesthesia Complications Family History: No Family History of Anesthesia Complications Exercise Tolerance Exercise Tolerance: Metabolic Equivalents>4 Pertinent Negatives Pertinent Negatives: No Symptoms of GERD, No Major Cardiovascular Symptoms or Complaints, No Major Pulmonary Symptoms or Complaints and No History of CVA/TIA Cardiac & Pulmonary Exam Cardiac Exam: Normal S1/S2 Heart Sounds Pulmonary Exam: Clear Bilateral Breath Sounds Implantable Cardiac Device Does patient have a Pacemaker or an ICD?: No Airway Exam Known Difficult Airway: No Mallampati Class: 2 Mouth Opening: Normal (> 3cm) Thyromental Distance: Greater than 3 cm Neck Range of Motion: Full ROM Neck Circumference: Normal Teeth Condition: Normal Dentition ASA Classification ASA Score: ASA 2 Emergency Case?: No NPO Status NPO Status: NPO Clears >2 hours, Solids >8 hours Anesthesia Plan Resuscitation Status: Full Code Anesthesia Technique: General Anesthesia Airway Planned: Endotracheal Tube Pain Management: Surgeon and patient request nerve block Monitors Used: Standard Monitors
[2025-01-22] MEDS: Enoxaparin 40 MG/0.4 ML SYR SC (10:01)
[2025-01-22] MEDS: Lactated Ringers 1,000 ML 30 ML IV (11:57)
[2025-01-22] MEDS: Bupivacaine 0.25% Pres-Free W/EPI 30 ML VIAL (12:25)
--- NOTE | 2025-01-22 12:33 | APP_PTH ---
PATIENT: Giovanni Jaimes LOC: [place] Power#:[id number] AGE/SX: 19/M ROOM: RE01/21/[address]: Nagi Melendez MD : 2005 BED: A DIS: 01/22/2025 SPEC #: [id number] RECD: 01/22/25 17:02 STATUS: DONTA REWendy #: [id number] IVAN: 01/22/25 12:[address]: Nagi Melendez DEPT: Surgical Specimen RECD BY: Vero Ro ENTERED: 01/22/25 17:03 SP TYPE: Appendix OTHR DR: Catarina Krishnamurthy Tissues: 1 - APPENDIX NOT INCIDENTAL Procedures: GROSS AND MICRO LEVEL 3 Comments: [id number]
--- NOTE | 2025-01-22 12:43 | ROE_ITS ---
Operative Note Operative Note PRE-OP DIAGNOSIS: Acute appendicitis POST-OP DIAGNOSIS: same PROCEDURE: Laparoscopic appendectomy SURGEON: Nagi Melendez LEATHER PRODUCTION MACHINE OPERATOR: Oscar Shrestha ANESTHESIA TYPE: Local By Surgeon and General LMA/ETT Refer to Anesthesia Record ESTIMATED BLOOD LOSS: 25 PATHOLOGY: other (Appendix) COMPLICATIONS: None Patient was transported to: PACU Patient's condition: stable Indications: Giovanni is a 19-year-old male with acute appendicitis Findings: Acute appendicitis Procedure Description: After the induction of general anesthesia, I prepped and draped the anterior abdominal wall in the usual fashion. Next, I made an umbilical incision. I dissected down to the fascia. Using a 5 mm optical viewing port, I entered the peritoneal cavity under direct vision. There was a small defect in the small bowel mesentery associated with entry. There was no bleeding. There is no hematoma. The small bowel did not appear at all involved. Next, with the assistance of the laparoscope, I placed 5 mm port in the left lower quadrant and a 12 mm port in the suprapubic position. I then moved the scope into the left lower quadrant. I started by examining the area of the right lower quadrant. I reflected the greater omentum cephalad and identified the terminal ileum. I traced this to the insertion at the cecum and then identified the base of the appendix at the confluence of the cecal tenia. Next, I mobilized the appendix which did appear acutely inflamed. I then used sequential firings of the LigaSure to divide the mesoappendix. Once this was complete I divided the appendix from the cecum at its base with a AMBROCIO stapler. I placed the appendix into an Endo Catch bag and removed through the suprapubic site. I examined the surgical field. The staple line looked fine. There was no contamination or spillage and the surgical field was hemostatic. The suprapubic port was re moved, and the fascia was closed with a Tacho Theodore wound closure device. Pneumoperitoneum was released, and the 5 mm ports were closed with subcuticular stitches. Band-Aids were applied, and the patient was extubated and transferred to the PACU Date of Procedure: 01/22/25
--- NOTE | 2025-01-22 14:15 | NUR.NOTE ---
Nursing Note: Pt back from surgery, drinking ice water and eaing saltine crackers without difficulty. VSS
--- NOTE | 2025-01-22 14:16 | W.ANESPOSTOP ---
Postoperative Evaluation Date, Time and Location Date Performed: 01/22/25 Time Performed: 13:20 Patient Location: PACU Vital Signs Most Recent Imported Vital Signs: Most Recent Vital Signs Temp Pulse Resp BP Pulse Ox 36.1 C L 52 L 16 101/64 100 01/22/25 13:58 01/22/25 13:58 01/22/25 13:58 01/22/25 13:58 01/22/25 13:58 Pain Score Most Recent Pain Score: Most Recent Pain Score Pain Level [Right Lower 8 01/21/25 23:00 Abdomen] Pain Level 6 01/22/25 13:58 Assessment Mental Status: Awake (Alert & Oriented to Patient Baseline) Airway and Respiratory Function: Patent airway with normal (patient baseline) respiratory exam Cardiovascular Function: Hemodynamically Stable Hydration Status: Adequately Hydrated Nausea & Vomiting: No Nausea or Vomiting Pain: Pain is tolerable per patient Peripheral Nerve Block: Patient did not receive a nerve block
[2025-01-22] MEDS: traMADol 50 MG TAB PO (15:11)
--- NOTE | 2025-01-22 15:34 | PDOC.CMIN ---
Date of service: 01/22/25 Time of Service: 15:34 Care Management Initial Assmt Initial Assessment Reason for Hospitalization: Appendicitis Functional Status/Living Situation Patient Presentation: Giovanni was lying in bed and was visiting with his mother in law, when CM arrived. Giovanni presented to the ED with right lower quadrant abdominal pain, severe and stabbing in nature. Giovanni is pleasant and willing to engage in conversation. He shares that his girlfriend works in [employer], at [facility]. Giovanni is currently living in a single family home with his girlfriend, and her family. Giovanni states that he does not want his biological mother to have access to any of his HCI; CM updated his HIPAA with him, per pt request. Giovanni states that he is feeling much better and would like to go home sooner than later. Town of Residence: [place] Resides with: Spouse (and her family) Significant Other/Family: Local Natural Supports: Friends and family Employment Status: Employed ([employer] ) Activities/Hobbies/SocialSupport: Sports Medications Medication Management: No Issues/Barriers identified Advance Directives Advance Directives: Do you have an Advance Directive: N 06/30/22 07:09 AD On File at [facility]: N 06/30/22 07:06 Date Asked 01/21/25 01/21/25 19:32 AD Date Reviewed COLST On File at [facility] COLST Date Scanned Code Status Resuscitation Status Full Code Portal Pt does not currently have a portal and education provided: Yes Insurance Coverage/Financial Issues Insurance: [employer] Medicaid of [place]? Care Team Visit Care Team Role Provider Type Catarina Krishnamurthy Primary Care Provider NON-[facility] STAFF PHYSICIAN JAZZY Silva Emergency Provider [employer] Nagi Melendez MD Admit Provider [facility] STAFF PHYSICIAN Attending Provider Discharge Potential Discharge Needs: PCP F/U Appt Anticipated Barriers to Discharge: None Identified Patient/Family Education Needs: Review discharge instructions, discuss Ask Me Three Transportation: Private vehicle Plan: Giovanni is being discharged home today. He will follow up with his community provider, surgical team, and discharge plan of care. Giovanni will be transported via private vehicle by family. Social Determinants of Health Screening Social Determinants of health last assessed in clinic: 01/22/25 Will the Patient Participate in the Screening?: Yes Do you worry about having a steady place to live?: no Problems where you live: no known problems In the past 12 months, have you had to go without electric, gas, oil or water in your home?: no 1. Within the past 12 months, we worried whether our food would run out before we got money to buy more.: Never true 2. Within the past 12 months, the food we bought just didn't last and we didn't have money to get more.: Never true Has lack of transportation kept you from medical appointments or from doing things needed for daily living?: no Has anyone in your life made you feel unsafe or unsupported?: no How hard is it for you to pay for the very basics like food, housing, medical care, and heating? Would you say it is:: Not hard at all Do you want help finding or keeping work or a job?: I do not need or want help If for any reason you need help with day-to-day activities such as bathing, preparing meals, shopping, managing finances, etc., do you get the help you need?: I don?t need any help How often do you feel lonely or isolated from those around you?: Never Do you speak a language other than Serbian at home?: No Does the patient want assistance with any of the above?: No PFSH All Active Problems (Updated 01/21/25 @ 21:54 by JAZZY Silva) Acute appendicitis (Acute) Pilonidal cyst (Acute) Medical History (Updated 01/21/25 @ 21:54 by JAZZY Silva) Night sweats (~02/2024) Unintentional weight loss (~07/14/24) Surgical History (Updated 12/17/24 @ 14:08 by Johanna Rubio RN) History of left inguinal hernia repair (~11/01/20) Social History Smoking/Tobacco Use Status: Never Smoking risk assessment performed?: Yes Alcohol Intake: never Drug use: Daily Substance use type: marijuana Housing: house Do you feel safe at home: Yes Do you feel safe in your relationship?: Yes
--- NOTE | 2025-01-22 15:39 | DSE_ITS ---
Date of service: 01/22/25 Time of Service: 15:40 DS: Diagnosis Discharge Diagnosis (1) Acute appendicitis: Status: Acute Asessment and Plan: Outpatient postoperative follow-up Discharge Plan Disposition Patient Disposition: Home Condition: Good Discharge Details Reason For Visit: Appendicitis Admit Date/Time: 01/21/25 21:38 Admit Provider: Nagi Melendez Attending Provider: Nagi Melendez Primary Care Provider: Catarina Krishnamurthy Hospital Course Hospital Course: Geo is a 19-year-old man who presented to the emergency department with right lower quadrant pain. He had a leukocytosis, and CAT scan confirmed the presence of acute appendicitis. He was started on broad-spectrum antibiotics and underwent laparoscopic appendectomy. He was discharged home afterwards with outpatient postoperative follow-up Home Meds and New Rx's Prescriptions: New tramadol 50 mg tablet 50 mg PO Q8H PRNQty: 9 0RF Rx Instructions: Take 1 tablet by mouth up to every 8 hours if needed for severe pain. Discharge Instructions Instructions: Appendectomy, Laparoscopic Surgery (DC) Additional Instructions: Giovanni was very nice meeting you, and I hope you make a quick and uneventful recovery from your appendectomy. As we talked about, you should be up and walking around a little bit more more each day. Be careful with your lifting, and try to keep it less than 5 to 10 pounds, or about a gallon of milk. As I mentioned, you can change the Band-Aids if needed over the next 24 hours. If they stay dry, then remove all of the bandages tomorrow, and wash the incisions with warm soapy water. You are welcome to put new Band-Aids on afterwards if you find incisions irritated by her clothing. Alternatively, they do not need bandages if everything else feels comfortable. You should do some ice packs over the incisions if needed for pain. If you need anything, or have any questions at all, please do not hesitate to call at any point. 1. Resume all of your regular medications. 2. Use ice packs over the incisions as needed for pain and swelling. 3. Alternate [id number] Tylenol and ibuprofen every 6 hours for the first 2 days, then use as needed. Use the prescription for tramadol if needed for more severe pain 4. Leave bandages in place for 24 hours, then remove. 5. Shower with warm soapy water. Pat dry. Use a bandaid if needed to protect your clothing. 6. No soaking or tub baths until I see you in the office. 7. No heavy lifting until I see you in the office. 8. Call the office (or go directly to the emergency room after hours) if you notice any of the following: Develop chills (warm to touch), or if you have a thermometer and your temperature is above 101 Difficulty breathing or difficultly swallowing Persistent vomiting Any bleeding ? exceeding one tablespoon 9. Call your physician if the site where your intravenous was started becomes red, swollen, painful, and warm to touch. Referrals: Nagi Melendez MD [ [facility] STAFF PHYSICIAN] - (10 to 14 days) Activity:: No heavy lifting Equipment/Supplies:: No Equipment Needed Diet:: As Tolerated DS: Summary Time Spent with Patient providing and/or coordinating discharge services: Less than 30 minutes Status at Discharge Functional status at discharge: independent ambulation Overall status at discharge: patient is progressing back to baseline Mental Status: mental status grossly normal Speech and Movement: speech and movement normal Mood: congruent mood Affect: normal affect Quality:SDOH Health Related Social Needs: No Data to Display Exam Psych Mental Status: mental status grossly normal Speech and Movement: speech and movement normal Mood: congruent mood Affect: normal affect DS: Data Vitals/I&O Vitals and I&O: Vital Signs Temperature 97.3 F L 01/22/25 15:01 Temperature Source Temporal Artery Scan 01/22/25 15:01 Pulse 60 01/22/25 15:01 Pulse 61 01/22/25 13:21 Respiratory Rate 16 01/22/25 15:01 Respiratory Effort Normal, Non-Labored 01/21/25 22:50 Respiratory Depth Normal 01/21/25 22:50 Respiratory Pattern Normal 01/21/25 22:50 Blood Pressure 98/55 L 01/22/25 15:01 Blood Pressure Mean 69 01/22/25 15:01 Pulse Oximetry 99 01/22/25 15:01 Respiratory End-tidal CO2 35 01/22/25 13:17 Oxygen Delivery Method Room Air 01/22/25 15:01 Oxygen Flow Rate 0 01/22/25 15:01 Pain Level 7 01/22/25 15:11 Comment rn notified 01/22/25 06:07 Intake & Output 01/21/25 01/22/25 01/22/25 23:59 11:59 23:59 Intake Total 1210 / 1210 643.75 / 1193.75 550 / 1193.75 Output Total 200 / 325 125 / 325 Balance 1210 / 1210 443.75 / 868.75 425 / 868.75 Weight 152 lb 152 lb Intake: IV 1210 / 1210 643.75 / 1193.75 550 / 1193.75 Output: Urine 200 / 300 100 / 300 Estimated Blood Loss Other: Urine Color Yellow Urine Appearance Clear Urine Odor Strong Emesis Description None Data Completed and Pending Labs on day of discharge: Labs from last 24 hours 01/22/25 01/22/25 01/21/25 06:32 04:20 21:38 WBC 10.96 H Cancelled RBC 4.05 L Cancelled Hgb 12.8 L Cancelled Hct 36.7 L Cancelled MCV 91 Cancelled MCH 31.6 Cancelled MCHC 34.9 Cancelled RDW 12.6 Cancelled Plt Count 187 Cancelled MPV 11.1 H Cancelled Immature Gran % Cancelled Neutrophils % Cancelled Band Neutrophils % Cancelled Lymphocytes % Cancelled Atypical Lymphs % Cancelled Monocytes % Cancelled Eosinophils % Cancelled Basophils % Cancelled Metamyelocytes % Cancelled Myelocytes % Cancelled Promyelocytes % Cancelled Other Cells % Cancelled Nucleated RBC % Cancelled Absolute Neutrophils Cancelled Absolute Lymphocytes Cancelled Absolute Monocytes Cancelled Absolute Eosinophils Cancelled Absolute Basophils Cancelled RBC Morphology Cancelled Polychromasia Cancelled Hypochromasia Cancelled Poikilocytosis Cancelled Basophilic Stippling Cancelled Anisocytosis Cancelled Microcytosis Cancelled Macrocytosis Cancelled Spherocytes Cancelled Tear Drop Cells Cancelled Ovalocytes Cancelled Stomatocytes Cancelled [place] Bodies Cancelled Paul Cells/Echinocytes Cancelled Acanthocytes (Spur) Cancelled Schistocytes Cancelled VBG Lactate Sodium Potassium Chloride Carbon Dioxide Anion Gap BUN Creatinine Est GFR (CKD-EPI 2020) Glucose Calcium Total Bilirubin AST ALT Alkaline Phosphatase C-Reactive Protein Total Protein Albumin Lipase Urine Color Yellow Urine Clarity Clear Urine pH 6.5 Ur Specific [place] 1.015 Urine Protein Trace Urine Ketones 15 H Urine Blood Negative Urine Nitrite Negative Urine Bilirubin Negative Urine Urobilinogen 0.2 Ur Leukocyte Esterase Negative Urine Glucose Negative 01/21/25 19:45 WBC 18.58 H RBC 4.60 Hgb 14.1 Hct 41.5 MCV 90 MCH 30.7 MCHC 34.0 RDW 12.5 Plt Count 224 MPV 10.9 Immature Gran % 0.4 Neutrophils % 85.4 Band Neutrophils % Lymphocytes % 8.3 Atypical Lymphs % Monocytes % 5.5 Eosinophils % 0.2 Basophils % 0.2 Metamyelocytes % Myelocytes % Promyelocytes % Other Cells % Nucleated RBC % 0.0 Absolute Neutrophils 15.87 H Absolute Lymphocytes 1.54 Absolute Monocytes 1.02 H Absolute Eosinophils 0.04 Absolute Basophils 0.04 RBC Morphology Polychromasia Hypochromasia Poikilocytosis Basophilic Stippling Anisocytosis Microcytosis Macrocytosis Spherocytes Tear Drop Cells Ovalocytes Stomatocytes [place] Bodies Paul Cells/Echinocytes Acanthocytes (Spur) Schistocytes VBG Lactate 1.3 Sodium 140 Potassium 3.7 Chloride 103 Carbon Dioxide 27.6 Anion Gap 9.4 BUN 16 Creatinine 1.0 Est GFR (CKD-EPI 2020) 110.50 Glucose 107 H Calcium 9.5 Total Bilirubin 0.6 AST 20 ALT 21 Alkaline Phosphatase 84 C-Reactive Protein < 0.50 Total Protein 7.6 Albumin 4.7 Lipase 19 Urine Color Urine Clarity Urine pH Ur Specific [place] Urine Protein Urine Ketones Urine Blood Urine Nitrite Urine Bilirubin Urine Urobilinogen Ur Leukocyte Esterase Urine Glucose 01/21/25 20:13 Blood Blood Culture - Pending 01/21/25 20:09 Blood Blood Culture - Pending Preliminary micro results at discharge 01/21/25 20:13 Blood Blood Culture - Pending 01/21/25 20:09 Blood Blood Culture - Pending [facility] All Active Problems (Updated 01/21/25 @ 21:54 by JAZZY Silva) Acute appendicitis (Acute) Pilonidal cyst (Acute) Medical History (Updated 01/21/25 @ 21:54 by JAZZY Silva) Night sweats (~02/2024) Unintentional weight loss (~07/14/24) Surgical History (Updated 12/17/24 @ 14:08 by Johanna Rubio RN) History of left inguinal hernia repair (~11/01/20) Social History Smoking/Tobacco Use Status: Never Smoking risk assessment performed?: Yes Alcohol Intake: never Drug use: Daily Substance use type: marijuana Housing: house Do you feel safe at home: Yes Do you feel safe in your relationship?: Yes Time Spent with Patient Time Spent with Patient: 45-69 minutes Time was spent: preparing to see the patient(eg.review tests), counseling the patient and care coordination
== END 2025-01-22 16:11 | disposition home or self-care (01) ==
LOC: ER 21:54 → MS 22:43
PROVIDERS: Admitting Provider Surgery; Emergency Provider Physician Assistant; PCP Family Medicine; Visit Provider Surgery
PROC: 0DTJ4ZZ Resection of Appendix, Percutaneous Endoscopic Approach (ICD-10-PCS; CPT 44970; principal; 2025-01-22 12:00)
DX: K35.890 Other acute appendicitis without perforation or gangrene (principal); K38.1 Appendicular concretions; D72.829 Elevated white blood cell count, unspecified; F12.90 Cannabis use, unspecified, uncomplicated
CPT/HCPCS: 44970; 36415; 80053; 83690; 85027; 87040; 96361; 96365; 96366; 96367; 96372; 96375; 96376; 99285; J1650; 74177; 81003; 83605; 85025; 86140; 88304; G0378; J0131; J1100; J1171; J1885; J2003; J2405; J2543; J2704; J3010; J3490

== ENCOUNTER 2025-01-30 15:12 | Outpatient (REF) | payer OTHER, MEDICAID, SELFPAY ==
[2025-02-03 14:00] LABS: Helicobacter pylori Ag, Feces Negative (Negative)
== END 2025-01-30 15:13 | disposition home or self-care (01) ==
LOC: NCHCN 15:12
PROVIDERS: PCP Family Medicine; Visit Provider Family Medicine
DX: R63.4 Abnormal weight loss (principal)
CPT/HCPCS: 87015; 87269; 87272; 87338